=== PATIENT | male | born 1955 | race Caucasian/White ===

== ENCOUNTER 2016-10-09 14:23 | Inpatient (IN) | payer MEDICARE, OTHER ==
--- NOTE | 2016-10-09 16:40 | ED ---
General Adult HPI - General Chief complaint: Shortness of Breath Stated complaint: SOB Time Seen by Provider: 10/09/16 16:08 Source: patient, RN notes reviewed, old records reviewed Mode of arrival: wheelchair Limitations: no limitations - History of Present Illness Initial comments: This is a 7-year-old male ER for evaluation. This patient has a for evaluation of weakness, increased weakness progressive dyspnea and exertional dyspnea and a few syncopal episodes, symptoms grossing over 2 weeks. Patient has history of heart failure and coronary artery disease, patient is on oxygen at home. Patient also admits to swelling of his lower extremities and abdomen. Patient is no known fevers, and no chest pain at this time. - Related Data Home Medications Medication Instructions Recorded Confirmed Albuterol Sulfate [Ventolin HFA] 2 puff INHALATION RT-QID PRN 01/23/16 10/09/16 Aspirin 325 mg PO DAILY 01/23/16 10/09/16 Loratadine [Loratadine] 10 mg PO DAILY 01/23/16 10/09/16 PARoxetine HCL [PARoxetine HCL] 40 mg PO DAILY 01/23/16 10/09/16 Albuterol Nebulized [Ventolin 2.5 mg INHALATION RT-TID PRN 10/09/16 10/09/16 Nebulized] Allopurinol [Zyloprim] 300 mg PO DAILY 10/09/16 10/09/16 Clopidogrel [Plavix] 75 mg PO DAILY 10/09/16 10/09/16 Ergocalciferol (Vitamin D2) 50,000 unit PO Q7D 10/09/16 10/09/16 [Vitamin D2] Fluticasone/Vilanterol [Breo 1 puff INHALATION RT-DAILY 10/09/16 10/09/16 Ellipta 200-25 Mcg INH] Furosemide [Lasix] 40 mg PO DAILY 10/09/16 10/09/16 Ibuprofen [Motrin] 800 mg PO Q8H PRN 10/09/16 10/09/16 Montelukast [Singulair] 10 mg PO HS 10/09/16 10/09/16 OXcarbazepine [Trileptal] 150 mg PO HS 10/09/16 10/09/16 Omeprazole [PriLOSEC] 20 mg PO DAILY 10/09/16 10/09/16 Potassium Chloride ER [K-Dur 10] 10 meq PO DAILY 10/09/16 10/09/16 Simvastatin [Zocor] 40 mg PO HS 10/09/16 10/09/16 traMADol HCL [Ultram] 50 mg PO BID 10/09/16 10/09/16 traZODone HCL 50 mg PO HS 10/09/16 10/09/16 Allergies Allergy/AdvReac Type Severity Reaction Status Date / Time No Known Allergies Allergy Verified 10/09/16 14:38 Review of Systems ROS Statement: Those systems with pertinent positive or pertinent negative responses have been documented in the HPI. ROS Other: All systems not noted in ROS Statement are negative. Past Medical History Past Medical History: Coronary Artery Disease (CAD), Hyperlipidemia, Hypertension, Myocardial Infarction ([place]) Additional Past Medical History / Comment(s): cardiac defib, History of Any Multi-Drug Resistant Organisms: None Reported Past Surgical History: Back Surgery, Coronary Bypass/CABG, Orthopedic Surgery Additional Past Surgical History / Comment(s): cabg FINGER REPAIR REATTACHEMENT Past Psychological History: Anxiety, Depression Smoking Status: Current every day smoker Past Alcohol Use History: None Reported Past Drug Use History: None Reported General Exam Limitations: no limitations General appearance: alert, in no apparent distress Head exam: Present: atraumatic, normocephalic, normal inspection Eye exam: Present: normal appearance, PERRL, EOMI. Absent: scleral icterus, conjunctival injection, periorbital swelling ENT exam: Present: normal exam, mucous membranes moist Neck exam: Present: normal inspection. Absent: tenderness, meningismus, lymphadenopathy Respiratory exam: Present: normal lung sounds bilaterally. Absent: respiratory distress, wheezes, rales, rhonchi, stridor Cardiovascular Exam: Present: regular rate, normal rhythm, normal heart sounds. Absent: systolic murmur, diastolic murmur, rubs, gallop, clicks GI/Abdominal exam: Present: soft, normal bowel sounds. Absent: distended, tenderness, guarding, rebound, rigid Extremities exam: Present: normal inspection, full ROM, normal capillary refill. Absent: tenderness, pedal edema, joint swelling, calf tenderness Back exam: Present: normal inspection Neurological exam: Present: alert, oriented X3, CN II-XII intact Psychiatric exam: Present: normal affect, normal mood Skin exam: Present: warm, dry, intact, normal color. Absent: rash Course Vital Signs 10/09/16 10/09/16 10/09/16 14:34 17:52 17:55 Temperature 97.8 F 97.8 F Pulse Rate 96 91 Respiratory 20 20 Rate Blood Pressure 103/71 96/70 O2 Sat by Pulse 95 99 Oximetry - Reevaluation(s) Reevaluation #1: 10/09/16 19:02 Patient does have mild improvement of breathing but still feeling weak and fatigued Medical Decision Making - Medical Decision Making 61 male here for reevaluation shortness of breath swelling increased leg edema weakness and decreased activity level. Patient does have mildly elevated troponin with dehydration and renal failure and pneumonia. Patient will be admitted for treatment and evaluation of all the above. Continued cardiovascular and hemodynamic monitoring and support. - Lab Data Result diagrams: 10/09/16 16:03 10/09/16 16:03 Lab Results 10/09/16 10/09/16 10/09/16 Range/Units 16:03 16:03 16:03 WBC 14.9 H (3.8-10.6) k/uL RBC 4.34 (4.30-5.90) m/uL Hgb 10.3 L (13.0-17.5) gm/dL Hct 35.2 L (39.0-53.0) % MCV 81.1 (80.0-100.0) fL MCH 23.8 L (25.0-35.0) pg MCHC 29.3 L (31.0-37.0) g/dL RDW 17.9 H (11.5-15.5) % Plt Count 284 (150-450) k/uL Neutrophils % 81 % Lymphocytes % 11 % Monocytes % 6 % Eosinophils % 0 % Basophils % 0 % Neutrophils # 12.0 H (1.3-7.7) k/uL Lymphocytes # 1.6 (1.0-4.8) k/uL Monocytes # 0.9 (0-1.0) k/uL Eosinophils # 0.1 (0-0.7) k/uL Basophils # 0.0 (0-0.2) k/uL Hypochromasia Marked Poikilocytosis Moderate Anisocytosis Slight Microcytosis Slight PT (9.0-12.0) sec INR (<1.1) APTT (22.0-30.0) sec D-Dimer (<0.60) mg/L FEU Sodium 126 L (137-145) mmol/L Potassium 5.4 H (3.5-5.1) mmol/L Chloride 96 L (98-107) mmol/L Carbon Dioxide 18 L (22-30) mmol/L Anion Gap 12 mmol/L BUN 49 H (9-20) mg/dL Creatinine 1.40 H (0.66-1.25) mg/dL Est GFR (MDRD) Af Amer >60 (>60 ml/min/1.73 sqM) Est GFR (MDRD) Non-Af 52 (>60 ml/min/1.73 sqM) Glucose 179 H (74-99) mg/dL Calcium 8.0 L (8.4-10.2) mg/dL Phosphorus 4.2 (2.5-4.5) mg/dL Magnesium 2.0 (1.6-2.3) mg/dL Total Bilirubin 1.7 H (0.2-1.3) mg/dL AST 50 (17-59) U/L ALT 117 H (21-72) U/L Alkaline Phosphatase 144 H (38-126) U/L Total Creatine Kinase 77 (55-170) U/L CK-MB (CK-2) 4.1 H* (0.0-2.4) ng/mL CK-MB (CK-2) Rel Index 5.3 Troponin I 0.046 H* (0.000-0.034) ng/mL NT-Pro-B Natriuret Pep pg/mL Total Protein 6.2 L (6.3-8.2) g/dL Albumin 3.2 L (3.5-5.0) g/dL Urine Color Urine Appearance (Clear) Urine pH (5.0-8.0) Ur Specific [place] (1.001-1.035) Urine Protein (Negative) Urine Glucose (UA) (Negative) Urine Ketones (Negative) Urine Blood (Negative) Urine Nitrate (Negative) Urine Bilirubin (Negative) Urine Urobilinogen (<2.0) mg/dL Ur Leukocyte Esterase (Negative) 10/09/16 10/09/16 10/09/16 Range/Units 16:03 16:03 16:03 WBC (3.8-10.6) k/uL RBC (4.30-5.90) m/uL Hgb (13.0-17.5) gm/dL Hct (39.0-53.0) % MCV (80.0-100.0) fL MCH (25.0-35.0) pg MCHC (31.0-37.0) g/dL RDW (11.5-15.5) % Plt Count (150-450) k/uL Neutrophils % % Lymphocytes % % Monocytes % % Eosinophils % % Basophils % % Neutrophils # (1.3-7.7) k/uL Lymphocytes # (1.0-4.8) k/uL Monocytes # (0-1.0) k/uL Eosinophils # (0-0.7) k/uL Basophils # (0-0.2) k/uL Hypochromasia Poikilocytosis Anisocytosis Microcytosis PT 13.9 H (9.0-12.0) sec INR 1.4 (<1.1) APTT 26.2 (22.0-30.0) sec D-Dimer 2.93 H (<0.60) mg/L FEU Sodium (137-145) mmol/L Potassium (3.5-5.1) mmol/L Chloride (98-107) mmol/L Carbon Dioxide (22-30) mmol/L Anion Gap mmol/L BUN (9-20) mg/dL Creatinine (0.66-1.25) mg/dL Est GFR (MDRD) Af Amer (>60 ml/min/1.73 sqM) Est GFR (MDRD) Non-Af (>60 ml/min/1.73 sqM) Glucose (74-99) mg/dL Calcium (8.4-10.2) mg/dL Phosphorus (2.5-4.5) mg/dL Magnesium (1.6-2.3) mg/dL Total Bilirubin (0.2-1.3) mg/dL AST (17-59) U/L ALT (21-72) U/L Alkaline Phosphatase (38-126) U/L Total Creatine Kinase (55-170) U/L CK-MB (CK-2) (0.0-2.4) ng/mL CK-MB (CK-2) Rel Index Troponin I (0.000-0.034) ng/mL NT-Pro-B Natriuret Pep 39979 pg/mL Total Protein (6.3-8.2) g/dL Albumin (3.5-5.0) g/dL Urine Color Urine Appearance (Clear) Urine pH (5.0-8.0) Ur Specific [place] (1.001-1.035) Urine Protein (Negative) Urine Glucose (UA) (Negative) Urine Ketones (Negative) Urine Blood (Negative) Urine Nitrate (Negative) Urine Bilirubin (Negative) Urine Urobilinogen (<2.0) mg/dL Ur Leukocyte Esterase (Negative) 10/09/16 Range/Units 17:45 WBC (3.8-10.6) k/uL RBC (4.30-5.90) m/uL Hgb (13.0-17.5) gm/dL Hct (39.0-53.0) % MCV (80.0-100.0) fL MCH (25.0-35.0) pg MCHC (31.0-37.0) g/dL RDW (11.5-15.5) % Plt Count (150-450) k/uL Neutrophils % % Lymphocytes % % Monocytes % % Eosinophils % % Basophils % % Neutrophils # (1.3-7.7) k/uL Lymphocytes # (1.0-4.8) k/uL Monocytes # (0-1.0) k/uL Eosinophils # (0-0.7) k/uL Basophils # (0-0.2) k/uL Hypochromasia Poikilocytosis Anisocytosis Microcytosis PT (9.0-12.0) sec INR (<1.1) APTT (22.0-30.0) sec D-Dimer (<0.60) mg/L FEU Sodium (137-145) mmol/L Potassium (3.5-5.1) mmol/L Chloride (98-107) mmol/L Carbon Dioxide (22-30) mmol/L Anion Gap mmol/L BUN (9-20) mg/dL Creatinine (0.66-1.25) mg/dL Est GFR (MDRD) Af Amer (>60 ml/min/1.73 sqM) Est GFR (MDRD) Non-Af (>60 ml/min/1.73 sqM) Glucose (74-99) mg/dL Calcium (8.4-10.2) mg/dL Phosphorus (2.5-4.5) mg/dL Magnesium (1.6-2.3) mg/dL Total Bilirubin (0.2-1.3) mg/dL AST (17-59) U/L ALT (21-72) U/L Alkaline Phosphatase (38-126) U/L Total Creatine Kinase (55-170) U/L CK-MB (CK-2) (0.0-2.4) ng/mL CK-MB (CK-2) Rel Index Troponin I (0.000-0.034) ng/mL NT-Pro-B Natriuret Pep pg/mL Total Protein (6.3-8.2) g/dL Albumin (3.5-5.0) g/dL Urine Color Yellow Urine Appearance Clear (Clear) Urine pH 5.5 (5.0-8.0) Ur Specific [place] 1.015 (1.001-1.035) Urine Protein Trace H (Negative) Urine Glucose (UA) Negative (Negative) Urine Ketones Negative (Negative) Urine Blood Negative (Negative) Urine Nitrate Negative (Negative) Urine Bilirubin Negative (Negative) Urine Urobilinogen 4.0 (<2.0) mg/dL Ur Leukocyte Esterase Negative (Negative) - Radiology Data Radiology results: report reviewed (Chest x-ray positive for pneumonia, CT negative for PE, ultrasound bilateral lower external is negative for DVT), image reviewed Critical Care Time Critical Care Time: Yes Total Critical Care Time: 31 Disposition Clinical Impression: Congestive heart failure, Community acquired pneumonia, Asthma with exacerbation, ARF (acute renal failure), Elevated troponin Disposition: ADMITTED IP TO THIS HOSP Condition: Serious Referrals: Maddie Anne DO [Primary Care Provider] - 1-2 days
[2016-10-09] MEDS ORDERED: SODIUM CHLORIDE 0.9% 1,000 ML IV STA ×2 (16:44)
[2016-10-09 17:00] LABS: Anisocytosis Slight; Basophils % (A) 0 %; CH 23.9; CHCM 29.6; Eosinophils # (A) 0.1 k/uL (0-0.7); Eosinophils % (A) 0 %; HCT 35.2 % (39.0-53.0); HDW 4.13; HGB 10.3 gm/dL (13.0-17.5); Hypochromasia Marked; Luc % (Auto) 2; Lymphocytes # (A) 1.6 k/uL (1.0-4.8); Lymphocytes % (A) 11 %; MCH 23.8 pg (25.0-35.0); MCHC 29.3 g/dL (31.0-37.0); MCV 81.1 fL (80.0-100.0); Microcytosis Slight; Monocytes # (A) 0.9 k/uL (0-1.0); Monocytes % (A) 6 %; Neutrophils % (A) 81 %; Poikilocytosis Moderate; RBC 4.34 m/uL (4.30-5.90); RDW 17.9 % (11.5-15.5); WBC 14.9 k/uL (3.8-10.6); WBC (Perox) 14.36
[2016-10-09 17:16] LABS: ALT 117 U/L (21-72); AST 50 U/L (17-59); Alkaline Phosphatase 144 U/L (38-126); Anion Gap 12 mmol/L; Blood Urea Nitrogen 49 mg/dL (9-20); Carbon Dioxide 18 mmol/L (22-30); Chloride 96 mmol/L (98-107); Glucose 179 mg/dL (74-99); Non-African American GFR(MDRD) 52 (>60 ml/min/1.73 sqM); Phosphorous 4.2 mg/dL (2.5-4.5); Sodium 126 mmol/L (137-145); Total Bilirubin 1.7 mg/dL (0.2-1.3); Total Protein 6.2 g/dL (6.3-8.2)
[2016-10-09 17:17] LABS: INR 1.4 (<1.1); Partial Thromboplastin Time 26.2 sec (22.0-30.0); Potassium 5.4 mmol/L (3.5-5.1); Prothrombin Time 13.9 sec (9.0-12.0)
--- NOTE | 2016-10-09 17:25 | XR ---
EXAMINATION TYPE: XR chest 2V DATE OF EXAM: 10/09/2016 5:09 PM COMPARISON: 10/06/2013 HISTORY: Short of breath and cough TECHNIQUE: Frontal and lateral views of the chest are obtained. FINDINGS: The heart is enlarged. There is no heart failure. There is some density at the posterior l blayne base on the lateral view that is probably in the left lower lobe. There are no hilar masses. Ther e is a left axillary pacemaker with the lead tips in the right ventricle. There are chest leads. Ther e is slight blunting of left costophrenic angle. IMPRESSION: There is evidence of a new left pleural effusion compared to old exam. Heart appears sig nificantly increased in size since last exam that could relate to a pericardial effusion. The posteri or basal left lower lobe pneumonia cannot be excluded.
[2016-10-09] MEDS ORDERED: RX INFO: IV CONTRAST WAS GIVEN 1 EACH MISC MISCELLANE PRN (17:30)
[2016-10-09] MEDS ORDERED: ONDANSETRON 4 MG/2 ML VIAL IVP STA (17:33)
[2016-10-09 17:48] LABS: Creatine Kinase MB 4.1 ng/mL (0.0-2.4); Troponin I 0.046 ng/mL (0.000-0.034)
[2016-10-09 18:13] LABS: Appearance,Urine Clear (Clear); Bilirubin,Urine Negative (Negative); Glucose,Urine (UA) Negative (Negative); Ketones,Urine Negative (Negative); Leukocyte Esterase,Urine Negative (Negative); Nitrite,Urine Negative (Negative); PH, Urine 5.5 (5.0-8.0); Protein,Urine Trace (Negative); Specific Gravity,Urine 1.015 (1.001-1.035); UA Billing (MACRO vs. MICRO) CHEM
[2016-10-09] MEDS ORDERED: LEVOFLOXACIN 750MG-D5W PMX 750 MG in DEXTROSE/WATER 1 150ML.BAG IVPB STA (18:54)
--- NOTE | 2016-10-09 18:57 | CT ---
EXAMINATION TYPE: CT angio chest DATE OF EXAM: 10/09/2016 6:22 PM COMPARISON: 12/01/2009 HISTORY: Pt states of SOB and chest pain x5 days CT DLP: 682 mGycm Automated exposure control for dose reduction was used. CONTRAST: CTA scan of the thorax is performed with IV Contrast, patient injected with 80 mL of Visipaque 320, p ulmonary embolism protocol. . FINDINGS: There are 3-D post processed images. There are multiple enlarged paratracheal lymph nodes and mediast inal lymph nodes that measure up to 2 cm. I see no filling defect in the pulmonary arteries. There is no evidence of aortic aneurysm. Heart is enlarged. There are bilateral pleural effusions and larger on the left side. There is ascites fluid in the abdomen. There is coronary artery calcification. Ther e is no evidence of a pulmonary mass. There are interstitial infiltrates at the lung bases. IMPRESSION: NO EVIDENCE OF PULMONARY EMBOLISM. BILATERAL PLEURAL EFFUSIONS ARE SMALLER THAN OLD CT SCAN. THERE IS MEDIASTINAL ADENOPATHY UNCHANGED COMPARED TO OLD EXAM. ABDOMINAL ASCITES. CARDIOMEGALY. ATHEROSCLERO TIC VASCULAR DISEASE. There is contrast reflux into the inferior vena cava and hepatic veins consiste nt with congestive heart failure.
--- NOTE | 2016-10-09 18:58 | US ---
EXAMINATION TYPE: US venous doppler duplex LE BI DATE OF EXAM: 10/09/2016 6:45 PM COMPARISON: Prior in PACS 2009 CLINICAL HISTORY: Pain. CHF, Swelling SIDE PERFORMED: Bilateral VESSELS IMAGED: External Iliac Vein (EIV) Common Femoral Vein Deep Femoral Vein Greater Saphenous Vein * Femoral Vein Popliteal Vein Small Saphenous Vein * Proximal Calf Veins (* superficial vessels) TECHNOLOGIST IMPRESSION: Right Leg: Negative for DVT Left Leg: Negative for DVT IMPRESSION: Normal exam. No evidence of deep venous thrombosis in the left and right leg.
[2016-10-09] MEDS ORDERED: ASPIRIN 325 MG TAB PO STA (19:04)
[2016-10-09] MEDS ORDERED: PNEUMONIA PROTOCOL UTILIZED 1 EACH MISC PO PRN (19:04)
[2016-10-09] MEDS ORDERED: FUROSEMIDE 10 MG/ML 4 ML VIAL IV STA (19:04)
[2016-10-09] MEDS: SODIUM CHLORIDE 0.9% 1,000 ML IV SCH (19:41)
[2016-10-09] MEDS: IPRATROPIUM-ALBUTEROL 3 ML NEB INHALATION SCH (20:21)
[2016-10-09 23:20] LABS: Anion Gap 13 mmol/L; Blood Urea Nitrogen 50 mg/dL (9-20); Calcium 7.6 mg/dL (8.4-10.2); Carbon Dioxide 18 mmol/L (22-30); Chloride 97 mmol/L (98-107); Glucose 159 mg/dL (74-99); Magnesium 1.8 mg/dL (1.6-2.3); Non-African American GFR(MDRD) 52 (>60 ml/min/1.73 sqM); Potassium 4.8 mmol/L (3.5-5.1); Sodium 128 mmol/L (137-145)
--- NOTE | 2016-10-10 07:48 | XR ---
EXAMINATION TYPE: XR chest 2V DATE OF EXAM: 10/10/2016 7:02 AM COMPARISON: CT chest 10/09/2016, chest x-ray 10/09/2016. INDICATION: Pneumonia TECHNIQUE: Single frontal view of the chest is obtained. FINDINGS: The heart size is normal. The pulmonary vasculature is normal. There is a lingular infiltrate. Correlate for atelectasis or pneumonia. Small left pleural effusion i s present. Electronic device overlies left chest. Sternotomy wires are present. IMPRESSION: 1. Lingular infiltrate. Correlate for atelectasis or pneumonia. 2. Small left pleural effusion
[2016-10-10] MEDS: ASPIRIN 325 MG TAB PO SCH (08:16)
[2016-10-10] MEDS: IPRATROPIUM-ALBUTEROL 3 ML NEB INHALATION SCH ×4 (09:10→21:01)
[2016-10-10 09:44] LABS: Anisocytosis Slight; Basophils % (A) 0 %; CH 23.6; CHCM 28.1; Eosinophils # (A) 0.1 k/uL (0-0.7); Eosinophils % (A) 1 %; HCT 35.8 % (39.0-53.0); HGB 10.3 gm/dL (13.0-17.5); Hypochromasia Marked; Luc % (Auto) 1; Lymphocytes % (A) 7 %; MCH 24.2 pg (25.0-35.0); MCHC 28.8 g/dL (31.0-37.0); MCV 84.3 fL (80.0-100.0); Mean Platelet Volume 6.9; Monocytes # (A) 0.5 k/uL (0-1.0); Monocytes % (A) 4 %; Neutrophils # (A) 12.2 k/uL (1.3-7.7); Neutrophils % (A) 87 %; Poikilocytosis Slight; RBC 4.25 m/uL (4.30-5.90); RDW 17.8 % (11.5-15.5); WBC 13.9 k/uL (3.8-10.6); WBC (Perox) 13.15
[2016-10-10 09:46] LABS: ALT 102 U/L (21-72); AST 55 U/L (17-59); Alkaline Phosphatase 119 U/L (38-126); Anion Gap 13 mmol/L; Blood Urea Nitrogen 49 mg/dL (9-20); Calcium 7.9 mg/dL (8.4-10.2); Carbon Dioxide 17 mmol/L (22-30); Chloride 98 mmol/L (98-107); Glucose 242 mg/dL (74-99); Non-African American GFR(MDRD) 54 (>60 ml/min/1.73 sqM); Sodium 128 mmol/L (137-145); Total Bilirubin 1.6 mg/dL (0.2-1.3); Total Protein 6.1 g/dL (6.3-8.2)
[2016-10-10 10:06] LABS: Manual Review Performed; Polychromasia Present
[2016-10-10] MEDS: ERGOCALCIFEROL 50,000 UNIT CAP PO SCH (10:23)
[2016-10-10] MEDS: HEPARIN SODIUM,PORCINE 5,000 UNIT/ML 1 ML VIAL SQ SCH ×2 (10:23→22:24)
[2016-10-10] MEDS: CLOPIDOGREL 75 MG TAB PO SCH (10:23)
[2016-10-10] MEDS: LORATADINE 10 MG TAB PO SCH (10:23)
[2016-10-10] MEDS: PARoxetine 20 MG TAB PO SCH (10:24)
[2016-10-10] MEDS: PANTOPRAZOLE 40 MG TABLET PO SCH (10:24)
[2016-10-10] MEDS: POTASSIUM CHLORIDE ER 10 MEQ TAB.ER.PRT PO SCH (10:24)
--- NOTE | 2016-10-10 10:33 | ECHOF ---
Referral Reason:pericardialEffusion MEASUREMENTS -------- HEIGHT: 165.1 cm WEIGHT: 101.2 kg BP: 112/60 RVIDd: 4.2 cm (< 3.3) IVSd: 1.2 cm (0.6 - 1.1) LVIDd: 6.7 cm (3.9 - 5.3) LVPWd: 1.3 cm (0.6 - 1.1) IVSs: 1.7 cm LVIDs: 5.7 cm LVPWs: 1.6 cm LA Diam: 4.7 cm (2.7 - 3.8) LAESV Index (A-L): 34.56 ml/m Ao Diam: 3.6 cm (2.0 - 3.7) AV Cusp: 1.9 cm (1.5 - 2.6) MV EXCURSION: 15.228 mm (> 18.000) MV EF SLOPE: 97 mm/s (70 - 150) EPSS: 2.4 cm AV maxP.12 mmHg AV meanP.02 mmHg RAP: 5.00 mmHg RVSP: 40.65 mmHg FINDINGS -------- This was a technically adequate study. The left ventricle is moderately dilated. There is mild concentric left ventricular hypertrophy. Overall left ventricular systolic function is severely impaired with, an EF between 20 - 25 %. The right ventricle is severely enlarged. LA is moderately dilated 34-39 ml/m2 The right atrium is normal in size. 1.5mg of Definity was utilized for enhancement of images Aortic valve is trileaflet and is moderately thickened. The mitral valve leaflets are mildly thickened. Mild mitral annular calcification present. Moderate mitral regurgitation is present. Mild tricuspid regurgitation present. There is mild pulmonary hypertension. The right ventricular systolic pressure, as measured by Doppler, is 40.65mmHg. The pulmonic valve is normal. There is no pulmonic regurgitation present. The aortic root size is normal. The inferior vena cava is mildly dilated. There is no pericardial effusion. CONCLUSIONS -------- 1. This was a technically adequate study. 2. The mitral valve leaflets are mildly thickened. 3. Mild mitral annular calcification present. 4. Moderate mitral regurgitation is present. 5. Mild tricuspid regurgitation present. 6. There is mild pulmonary hypertension. 7. The right ventricular systolic pressure, as measured by Doppler, is 40.65mmHg. 8. The aortic root size is normal. 9. The inferior vena cava is mildly dilated. 10. There is no pericardial effusion. 11. The left ventricle is moderately dilated. 12. There is mild concentric left ventricular hypertrophy. 13. Overall left ventricular systolic function is severely impaired with, an EF between 20 - 25 %. 14. The right ventricle is severely enlarged. 15. LA is moderately dilated 34-39 ml/m2 16. The right atrium is normal in size. 17. 1.5mg of Definity was utilized for enhancement of images 18. Aortic valve is trileaflet and is moderately thickened. INFUSION THERAPY NURSE: Analia Dumont RDCS
[2016-10-10] MEDS: traMADol 50 MG TAB PO SCH ×2 (11:04→22:24)
--- NOTE | 2016-10-10 11:05 | P.HPIM ---
History of Present Illness H&P Date: 10/10/16 Chief Complaint: Swelling of the legs and abdomen This is a 61-year-old male, patient of [facility]. He has a known past medical history of congestive heart failure, COPD, coronary artery disease , hyperlipidemia, hypertension, myocardial infarction with previous coronary artery bypass grafting. Also history of anxiety and nicotine dependence. Patient presents to the emergency room with complaints of lower extremity edema and swelling in the abdomen. All symptoms had started over the last few days. He also reports having syncopal episodes over the last couple a days as well. He reports that just getting out of bed he went to stand and passed out for less than a minute. He had no loss of bowel or bladder control. No biting of the tongue. When he regained consciousness he was awake and alert and recognized his . Patient does have a history of congestive heart failure in which she does take Lasix 40 mg daily. Patient reports that he has been taking this medication accurately. Patient's been having shortness of breath and feeling weak all over. Patient denies any fever, chills, sweats. Denies any nausea or vomiting. Denies any chest pain. Denies any bowel movement changes or urinary symptoms. Patient has been admitted to telemetry floor for congestive heart failure and acute kidney injury. Cardiology has been consulted. Patient had computed tomography scan of the chest that showed no evidence of pulmonary embolism. Bilateral pleural effusions are smaller than on old CAT scan. There is mediastinal adenopathy unchanged. Old exam. Abdominal ascites. Cardiomegaly. Atherosclerotic vascular disease. There is reflex in the inferior vena cava and hepatic veins consistent with congestive heart failure. On chest x-ray from today it is showing a lingular infiltrate with small left pleural effusion. Patient did receive a dose of IV Lasix in the emergency room and was started on Levaquin. Review of Systems Please refer to HPI otherwise unremarkable Past Medical History Past Medical History: Coronary Artery Disease (CAD), Heart Failure, Hyperlipidemia, Hypertension, Myocardial Infarction (PA), Osteoarthritis (OA) Additional Past Medical History / Comment(s): cardiac defib, patient did have episode of acute kidney injury in the past he did not require dialysis. Last Myocardial Infarction Date:: 2008 History of Any Multi-Drug Resistant Organisms: None Reported Past Surgical History: Back Surgery, Coronary Bypass/CABG, Orthopedic Surgery Additional Past Surgical History / Comment(s): CABG 2009, FINGER REPAIR REATTACHEMENT Past Anesthesia/Blood Transfusion Reactions: No Reported Reaction Past Psychological History: Anxiety, Depression Smoking Status: Current every day smoker Past Alcohol Use History: None Reported Past Drug Use History: None Reported - Past Family History Father Family Medical History: No Reported History Mother Family Medical History: Coronary Artery Disease (CAD), Diabetes Mellitus Medications and Allergies Home Medications Medication Instructions Recorded Confirmed Type Albuterol Sulfate [Ventolin HFA] 2 puff INHALATION RT-QID PRN 01/23/16 10/09/16 History Aspirin 325 mg PO DAILY 01/23/16 10/09/16 History Loratadine [Loratadine] 10 mg PO DAILY 01/23/16 10/09/16 History PARoxetine HCL [PARoxetine HCL] 40 mg PO DAILY 01/23/16 10/09/16 History Albuterol Nebulized [Ventolin 2.5 mg INHALATION RT-TID PRN 10/09/16 10/09/16 History Nebulized] Allopurinol [Zyloprim] 300 mg PO DAILY 10/09/16 10/09/16 History Clopidogrel [Plavix] 75 mg PO DAILY 10/09/16 10/09/16 History Ergocalciferol (Vitamin D2) 50,000 unit PO Q7D 10/09/16 10/09/16 History [Vitamin D2] Fluticasone/Vilanterol [Breo 1 puff INHALATION RT-DAILY 10/09/16 10/09/16 History Ellipta 200-25 Mcg INH] Furosemide [Lasix] 40 mg PO DAILY 10/09/16 10/09/16 History Ibuprofen [Motrin] 800 mg PO Q8H PRN 10/09/16 10/09/16 History Montelukast [Singulair] 10 mg PO HS 10/09/16 10/09/16 History OXcarbazepine [Trileptal] 150 mg PO HS 10/09/16 10/09/16 History Omeprazole [PriLOSEC] 20 mg PO DAILY 10/09/16 10/09/16 History Potassium Chloride ER [K-Dur 10] 10 meq PO DAILY 10/09/16 10/09/16 History Simvastatin [Zocor] 40 mg PO HS 10/09/16 10/09/16 History traMADol HCL [Ultram] 50 mg PO BID 10/09/16 10/09/16 History traZODone HCL 50 mg PO HS 10/09/16 10/09/16 History Allergies Allergy/AdvReac Type Severity Reaction Status Date / Time No Known Allergies Allergy Verified 10/09/16 14:38 Physical Exam Vitals: Vital Signs Temp Pulse Pulse Resp BP BP Pulse Ox 10/10/16 08:15 96.8 F L 97 24 114/67 100 10/10/16 04:00 92 20 112/60 99 10/10/16 00:00 93 20 117/78 99 10/09/16 20:50 96.3 F L 43 L 22 158/71 96 10/09/16 20:34 96.7 F L 97 18 97/53 100 10/09/16 20:33 97 10/09/16 20:23 99 10/09/16 20:14 96.6 F L 96 24 122/67 99 10/09/16 19:41 100 22 115/67 100 10/09/16 19:19 97.9 F 79 22 144/78 100 Intake and Output 10/09/16 10/10/16 10/10/16 22:59 06:59 14:59 Intake Total 480 534 Output Total 850 300 Balance -370 234 Intake: Oral 480 534 Output: Urine 850 300 Other: Voiding Method Toilet Toilet Toilet Urinal Urinal Urinal Weight 96.9 kg 101.2 kg Head normocephalic Neck supple Lungs clear to auscultation bilaterally no wheezing or crackles Heart regular rate and rhythm S1-S2, no rub or gallop Abdomen is soft nontender distended positive bowel sounds no hepatosplenomegaly Extremities 2+ pitting edema feet up to the knee bilaterally. Neuro alert and orientated to 3 Results CBC & Chem 7: 10/10/16 09:15 10/10/16 09:15 Labs: Abnormal Lab Results - Last 24 Hours (Table) 10/09/16 10/10/16 10/10/16 Range/Units 22:43 09:15 09:15 WBC 13.9 H (3.8-10.6) k/uL RBC 4.25 L (4.30-5.90) m/uL Hgb 10.3 L (13.0-17.5) gm/dL Hct 35.8 L (39.0-53.0) % MCH 24.2 L (25.0-35.0) pg MCHC 28.8 L (31.0-37.0) g/dL RDW 17.8 H (11.5-15.5) % Neutrophils # 12.2 H (1.3-7.7) k/uL Sodium 128 L 128 L (137-145) mmol/L Chloride 97 L (98-107) mmol/L Carbon Dioxide 18 L 17 L (22-30) mmol/L BUN 50 H 49 H (9-20) mg/dL Creatinine 1.40 H 1.34 H (0.66-1.25) mg/dL Glucose 159 H 242 H (74-99) mg/dL Calcium 7.6 L 7.9 L (8.4-10.2) mg/dL Total Bilirubin 1.6 H (0.2-1.3) mg/dL ALT 102 H (21-72) U/L Total Protein 6.1 L (6.3-8.2) g/dL Albumin 3.0 L (3.5-5.0) g/dL Thrombosis Risk Factor Assmnt - Choose All That Apply Any of the Below Risk Factors Present?: Yes Each Factor Represents 1 point: Age 41-60 years, Obesity (BMI >25) Thrombosis Risk Factor Assessment Total Risk Factor Score: 2 Thrombosis Risk Factor Assessment Level: Low Risk Assessment and Plan Plan: 1. Acute congestive heart failure exacerbation: Check echo. Patient did receive IV Lasix 1. Cardiology was consulted. BNP elevated 13,200. 2. Syncopal episode: Exact etiology unclear. Continue to monitor monitoring. Check echo. Check for orthostatic hypotension. Monitor for cardiac arrhythmias. Also need to rule out it's related to dehydration with his acute kidney injury 3. Acute kidney injury: Creatinine 1.40 on admission. Monitor closely. 4. Hyponatremia: Sodium 126 on admission now 128. Continue to monitor. Repeat labs in a.m. Possibly related to diuretics. He was on Lasix at home. 5. Hyperkalemia on admission possibly related to acute kidney injury and potassium supplement. Now corrected. Continue to monitor. 6. Possible pneumonia: Chest x-ray showing a lingular infiltrate. Patient started on Levaquin. 7. Mildly elevated LFTs with ALT of 117, AST 50, alk phos 144, total bili of 1.7. Hold patient's Zocor. Also could be related to congestive heart failure contributing to fluid congestion in the liver. We'll monitor. Repeat labs in a.m. 8. Elevated d-dimer on admission computed tomography scan of the chest is negative for PE Dopplers were negative for DVT 9. History of hyperlipidemia: Zocor on hold due to elevated LFTs 10. History of myocardial infarction and coronary artery disease with previous CABG 11. Essential hypertension: Blood pressures are stable. 12. COPD with no evidence of exacerbation. 13. Nicotine dependence: Patient is working on smoking cessation. He is down to smoking 1 cigarette a day 14. Episodes of bradycardia: We will patient evaluated by cardiology. Heart rate has been as low as 43 and is currently 97. GI prophylaxis Protonix and DVT prophylaxis subcu heparin Time with Patient: Greater than 30 (Greater than 50% of the total time spent in counseling and coordination of care.I performed an examination of the patient and discussed their management with the physician Child Life Therapist. I have reviewed the Physician Child Life Therapist's notes and agree with the documented findings and plan of care)
[2016-10-10 11:39] LABS: Glucose,Whole Blood 270 mg/dL (75-99)
[2016-10-10] MEDS: INSULIN LISPRO (humaLOG) 300 UNIT/3 ML VIAL SQ SCH ×3 (13:21→22:25)
[2016-10-10 13:39] LABS: % Iron Saturation 9.4 % (20-50)
[2016-10-10 14:16] LABS: Hemoglobin A1C 7.7 % (4.2-6.1)
[2016-10-10] MEDS ORDERED: FUROSEMIDE 10 MG/ML 2 ML VIAL IV ONE (14:39)
[2016-10-10 15:52] LABS: Hepatitis B Surface Ag Index 0.07
[2016-10-10 15:58] LABS: Hepatitis B Core IgM Index 0.04
[2016-10-10 16:10] LABS: Hepatitis C Virus IgG Ab Negative (Negative); Hepatitis C Virus IgG Index 0.01
[2016-10-10] MEDS: SYMBICORT 160-4.5 MCG INHALER INHALATION SCH ×2 (16:32→21:01)
[2016-10-10 16:40] LABS: Glucose,Whole Blood 206 mg/dL (75-99)
[2016-10-10] MEDS: LEVOFLOXACIN 750MG-D5W PMX 750 MG in DEXTROSE/WATER 1 150ML.BAG IVPB SCH (16:43)
[2016-10-10] MEDS: SODIUM CHLORIDE 0.9% 1,000 ML IV SCH (19:19)
[2016-10-10 21:07] LABS: Glucose,Whole Blood 159 mg/dL (75-99)
--- NOTE | 2016-10-10 22:12 | US ---
EXAMINATION TYPE: US carotid duplex BILAT DATE OF EXAM: 10/10/2016 7:26 PM COMPARISON: NONE CLINICAL HISTORY: syncope. Difficult study due to small vessels and patient's heavy breathing. Patien t fell asleep during exam multiple times/could not stay awake EXAM MEASUREMENTS: RIGHT: Peak Systolic Velocity (PSV) cm/sec ----- Right CCA: 51.4 ----- Right ICA: 123.9 ----- Right ECA: 106.6 ICA/CCA ratio: 2.4 RIGHT: End Diastole cm/sec ----- Right CCA: 14.7 ----- Right ICA: 33.3 ----- Right ECA: 6.7 LEFT: Peak Systolic Velocity (PSV) cm/sec ----- Left CCA: 68.0 ----- Left ICA: 72.3 ----- Left ECA: 47.9 ICA/CCA ratio: 1.1 LEFT: End Diastole cm/sec ----- Left CCA: 27.4 ----- Left ICA: 32.2 ----- Left ECA: 14.7 VERTEBRALS (direction of flow): Right Vertebral: Antegrade Left Vertebral: Antegrade IMPRESSION: 1. ARRYTHMIA NOTED THROUGHOUT EXAM. 2. MODERATE AMOUNT OF PLAQUE VISUALIZED IN BILATERAL BULBS. 3. RIGHT ICA/CCA RATIO IS >2, SUGGESTING 50-69% STENOSIS.
[2016-10-10] MEDS: OXcarbazepine 150 MG TAB PO SCH (22:24)
[2016-10-10] MEDS: traZODone HCL 50 MG TAB PO SCH (22:24)
[2016-10-10] MEDS: MONTELUKAST 10 MG TAB PO SCH (22:24)
[2016-10-11] MEDS: INSULIN LISPRO (humaLOG) 300 UNIT/3 ML VIAL SQ SCH ×5 (06:27→22:02)
[2016-10-11] MEDS: PANTOPRAZOLE 40 MG TABLET PO SCH (06:28)
[2016-10-11 06:33] LABS: Glucose,Whole Blood 166 mg/dL (75-99)
[2016-10-11 06:45] LABS: Anisocytosis Slight; Basophils % (A) 0 %; CH 23.7; CHCM 28.8; Eosinophils # (A) 0.1 k/uL (0-0.7); Eosinophils % (A) 1 %; HCT 33.2 % (39.0-53.0); HDW 4.04; HGB 9.6 gm/dL (13.0-17.5); Hypochromasia Marked; Luc # (Auto) 0.15; Luc % (Auto) 1; Lymphocytes # (A) 0.9 k/uL (1.0-4.8); Lymphocytes % (A) 8 %; MCH 23.9 pg (25.0-35.0); MCV 82.5 fL (80.0-100.0); Mean Platelet Volume 6.7; Monocytes # (A) 0.5 k/uL (0-1.0); Monocytes % (A) 5 %; Neutrophils # (A) 9.3 k/uL (1.3-7.7); Neutrophils % (A) 85 %; Poikilocytosis Moderate; RBC 4.03 m/uL (4.30-5.90); RDW 17.7 % (11.5-15.5); WBC (Perox) 11.61
[2016-10-11 06:59] LABS: ALT 93 U/L (21-72); AST 31 U/L (17-59); Alkaline Phosphatase 122 U/L (38-126); Anion Gap 11 mmol/L; Blood Urea Nitrogen 37 mg/dL (9-20); Calcium 8.2 mg/dL (8.4-10.2); Carbon Dioxide 20 mmol/L (22-30); Chloride 101 mmol/L (98-107); Glucose 134 mg/dL (74-99); Non-African American GFR(MDRD) >60 (>60 ml/min/1.73 sqM); Potassium 4.4 mmol/L (3.5-5.1); Sodium 132 mmol/L (137-145); Total Bilirubin 1.7 mg/dL (0.2-1.3); Total Protein 5.8 g/dL (6.3-8.2)
--- NOTE | 2016-10-11 08:38 | US ---
EXAMINATION TYPE: US abdomen complete DATE OF EXAM: 10/11/2016 7:55 AM COMPARISON: CT abdomen February 12, 2011. CTA chest October 09, 2016 CLINICAL HISTORY: elevated LFTs. EXAM MEASUREMENTS: Liver Length: 11.1 cm Gallbladder Wall: 0.7 cm CBD: 0.4 cm Spleen: 14.7 cm Right Kidney: 10.0 x 5.0 x 4.6 cm Left Kidney: 11.6 x 5.7 x 4.8 cm TECHNOLOGIST IMPRESSION: Technically difficult study, large abdomen with pitting edema, difficult to achieve pictures without motion, Pancreas: Obscured by bowel gas Liver: heterogeneous, right lobe appears atrophied Gallbladder: large stone within, thickened wall Evidence for sonographic Luis's sign: no CBD: limited visualization, portion visualized appears wnl Spleen: splenomegaly Right Kidney: inferior pole obscured by bowel gas Left Kidney: no mass or hydro identified Upper IVC: wnl Abd Aorta: unable to visualize due to large abdomen and pitting edema mild ascites The aorta and pancreas are suboptimally evaluated due to overlying bowel gas and patient's body habit us. Liver is heterogeneous in appearance without intrahepatic ductal dilatation. Evaluation for focal mas ses is limited due to the heterogeneity. Some ascites along right aspect of liver is redemonstrated o n images saved. Shadowing calculus is seen in gallbladder. Gallbladder wall is thickened up to 7 mm. Sonographic Luis's sign is negative. Spleen is enlarged in size without focal intrasplenic mass pre sent. Some surrounding ascites is seen superiorly and laterally. Superior portion of spleen is obscur ed by overlying rib . IMPRESSION: Suboptimal study, heterogeneous liver with splenomegaly and perihepatic and perisplenic a scites is noted raising concern for underlying hepatocellular disease. Clinical and liver lab correla tion advised.
[2016-10-11] MEDS: CLOPIDOGREL 75 MG TAB PO SCH (08:59)
[2016-10-11] MEDS: ASPIRIN 325 MG TAB PO SCH (08:59)
[2016-10-11] MEDS: traMADol 50 MG TAB PO SCH ×3 (09:00→22:03)
[2016-10-11] MEDS: LORATADINE 10 MG TAB PO SCH (09:00)
[2016-10-11] MEDS: POTASSIUM CHLORIDE ER 10 MEQ TAB.ER.PRT PO SCH (09:00)
[2016-10-11] MEDS: PARoxetine 20 MG TAB PO SCH (09:00)
[2016-10-11] MEDS: HEPARIN SODIUM,PORCINE 5,000 UNIT/ML 1 ML VIAL SQ SCH ×2 (09:01→22:02)
[2016-10-11] MEDS: FERROUS SULFATE 325 MG TAB PO SCH ×2 (09:04→22:02)
[2016-10-11] MEDS: IPRATROPIUM-ALBUTEROL 3 ML NEB INHALATION SCH ×4 (09:38→19:12)
[2016-10-11] MEDS: SYMBICORT 160-4.5 MCG INHALER INHALATION SCH ×2 (09:39→19:12)
[2016-10-11] MEDS ORDERED: Magnesium Replacement Protocol 1 EACH MISC MISCELLANE PRN (10:50)
[2016-10-11] MEDS ORDERED: Potassium Replacement Protocol 1 EACH MISC MISCELLANE PRN (10:50)
[2016-10-11] MEDS: FUROSEMIDE 250 MG in SODIUM CHLORIDE 0.9% 225 ML IVP SCH (11:44)
[2016-10-11] MEDS: LISINOPRIL 5 MG TAB PO SCH (11:44)
[2016-10-11 11:46] LABS: Glucose,Whole Blood 285 mg/dL (75-99)
--- NOTE | 2016-10-11 12:07 | CONS ---
DATE OF CONSULTATION: CHIEF COMPLAINT: Shortness of breath. Pardeep is a 61-year-old gentleman with history of chronic systolic heart failure, coronary artery disease, status post CABG, ischemic cardiomyopathy with severe LV dysfunction, status post AICD who presented to hospital with progressively worsening leg edema, weight gain and shortness of breath. It is moderate to severe in intensity. He comes in with acute exacerbation of chronic systolic heart failure. Patient has been here since the and I am being consulted today. He denies chest pain, actually does not seem all that symptomatic at rest other than the leg edema. Primary care physician wishes to start IV Lasix. I think it is a good idea, will go ahead and do it. Past medical history is significant for coronary artery disease, status post CABG, ischemic cardiomyopathy, chronic congestive heart failure, status post AICD. An echocardiogram on this admission revealed severe LV dysfunction. Current medications include Ultram, Zocor 40 q. daily, K-Dur, paroxetine, Prilosec, Trileptal, Singulair, loratadine, Motrin, Lasix 40 q. daily, Breo, vitamin D2, Plavix, aspirin, Zyloprim, Ventolin. ALLERGIES: There are no known drug allergies. Family history is negative for premature coronary artery disease. Social history is negative for current smoking, EtOH abuse, or drug abuse. REVIEW OF SYSTEMS: HEENT: Unremarkable. CARDIAC: As described above. RESPIRATORY: As described above. GI: Negative. GENITOURINARY: Negative. ALLERGY/IMMUNOLOGY: Negative. MUSCULOSKELETAL: Significant for arthritis. PSYCHOSOCIAL: Negative. ENDOCRINE: Negative. DERMATOLOGY: Negative. CONSTITUTIONAL: Negative. HEMATOLOGICAL: Negative. ONCOLOGICAL: Negative. The rest of the system review is not relevant. On exam, comfortable at rest. Vital signs are stable. Chest exam reveals good air entry bilaterally. Heart exam reveals first and second heart sounds. Systolic murmur at the apex. Abdomen is soft. Exam of extremities reveals bilateral 3+ pitting edema. Labs show that hemoglobin is 9.6. Potassium is 4.4. Creatinine is 1.2. Patient had a CT scan of the chest done this admission that was negative for pulmonary embolism. ASSESSMENT: 1. Acute exacerbation of chronic systolic heart failure. 2. Ischemic cardiomyopathy with severe left ventricular dysfunction. 3. Status post AICD. PLAN: We will continue with the Lasix drip. Continue the current medications.
--- NOTE | 2016-10-11 12:34 | P.PN ---
Subjective Patient presented with shortness of breath bilateral lower extremity edema with swelling into the abdomen. Did receive IV Lasix. Kidney factors have shown some improvement patient is still having significant edema. And his been started on Lasix drip today. Has noted some improvement in his shortness of breath. Denies any chest pain. Denies any nausea or vomiting. Denies any bowel movement changes or urinary symptoms. Objective - Vital Signs Vital signs: Vital Signs Temp 97.0 F L 10/11/16 08:55 Pulse 88 10/11/16 09:52 Resp 20 10/11/16 09:39 BP 118/71 10/11/16 08:55 Pulse Ox 96 10/11/16 08:55 Intake & Output 10/10/16 10/11/16 10/11/16 18:59 06:59 18:59 Intake Total 734 750 180 Output Total 650 Balance 84 750 180 Weight 101.2 kg 99.7 kg Intake: Intake, IV Titration 150 Amount Sodium Chloride 0.9% 1, 150 000 ml @ 20 mls/hr IV . Q24H [facility] Rx#:[id number] Oral 734 600 180 Output: Urine 650 Other: Voiding Method Toilet Toilet Toilet Urinal Urinal Urinal - Exam Head normocephalic Neck supple Lungs clear to auscultation bilaterally no wheezing or crackles Heart regular rate and rhythm S1-S2, no rub or gallop Abdomen is soft nontender abdominal distention positive bowel sounds no hepatosplenomegaly Extremities 2+ pitting lower extremity edema bilaterally up to the knees. Severe abdominal swelling. Neuro alert and orientated to 3 - Labs CBC & Chem 7: 10/11/16 06:05 10/11/16 05:58 Labs: Abnormal Lab Results - Last 24 Hours (Table) 10/10/16 10/10/16 10/10/16 Range/Units 09:15 09:15 16:39 WBC (3.8-10.6) k/uL RBC (4.30-5.90) m/uL Hgb (13.0-17.5) gm/dL Hct (39.0-53.0) % MCH (25.0-35.0) pg MCHC (31.0-37.0) g/dL RDW (11.5-15.5) % Neutrophils # (1.3-7.7) k/uL Lymphocytes # (1.0-4.8) k/uL Sodium (137-145) mmol/L Carbon Dioxide (22-30) mmol/L BUN (9-20) mg/dL Glucose (74-99) mg/dL POC Glucose (mg/dL) 206 H (75-99) mg/dL Hemoglobin A1c 7.7 H (4.2-6.1) % Calcium (8.4-10.2) mg/dL Iron 37 L (49-181) ug/dL % Saturation 9.4 L (20-50) % Total Bilirubin (0.2-1.3) mg/dL ALT (21-72) U/L Total Protein (6.3-8.2) g/dL Albumin (3.5-5.0) g/dL 10/10/16 10/11/16 10/11/16 Range/Units 21:05 05:58 06:05 WBC 11.0 H (3.8-10.6) k/uL RBC 4.03 L (4.30-5.90) m/uL Hgb 9.6 L (13.0-17.5) gm/dL Hct 33.2 L (39.0-53.0) % MCH 23.9 L (25.0-35.0) pg MCHC 29.0 L (31.0-37.0) g/dL RDW 17.7 H (11.5-15.5) % Neutrophils # 9.3 H (1.3-7.7) k/uL Lymphocytes # 0.9 L (1.0-4.8) k/uL Sodium 132 L (137-145) mmol/L Carbon Dioxide 20 L (22-30) mmol/L BUN 37 H (9-20) mg/dL Glucose 134 H (74-99) mg/dL POC Glucose (mg/dL) 159 H (75-99) mg/dL Hemoglobin A1c (4.2-6.1) % Calcium 8.2 L (8.4-10.2) mg/dL Iron (49-181) ug/dL % Saturation (20-50) % Total Bilirubin 1.7 H (0.2-1.3) mg/dL ALT 93 H (21-72) U/L Total Protein 5.8 L (6.3-8.2) g/dL Albumin 2.9 L (3.5-5.0) g/dL 10/11/16 10/11/16 Range/Units 06:06 11:40 WBC (3.8-10.6) k/uL RBC (4.30-5.90) m/uL Hgb (13.0-17.5) gm/dL Hct (39.0-53.0) % MCH (25.0-35.0) pg MCHC (31.0-37.0) g/dL RDW (11.5-15.5) % Neutrophils # (1.3-7.7) k/uL Lymphocytes # (1.0-4.8) k/uL Sodium (137-145) mmol/L Carbon Dioxide (22-30) mmol/L BUN (9-20) mg/dL Glucose (74-99) mg/dL POC Glucose (mg/dL) 166 H 285 H (75-99) mg/dL Hemoglobin A1c (4.2-6.1) % Calcium (8.4-10.2) mg/dL Iron (49-181) ug/dL % Saturation (20-50) % Total Bilirubin (0.2-1.3) mg/dL ALT (21-72) U/L Total Protein (6.3-8.2) g/dL Albumin (3.5-5.0) g/dL Assessment and Plan Plan: 1. Acute systolic congestive heart failure exacerbation: Echo shows an EF of 20 -25%, moderate mitral regurgitation. Mild pulmonary hypertension. Cardiology was consulted. BNP elevated 13,200 on admission. Patient was started on IV Lasix drip today 2. Syncopal episode: Exact etiology unclear. Continue to monitor monitoring. Check for orthostatic hypotension. Monitor for cardiac arrhythmias. Also need to rule out it's related to dehydration with his acute kidney injury. Echo shows an EF of 20 to 25%. No aortic stenosis 3. Acute kidney injury: Creatinine 1.40 on admission. Creatinine is showing improvement. Continue to monitor 4. Hyponatremia: Sodium 126 on admission. Continue to monitor. Repeat labs in a.m. Sodium level is 132 today 5. Hyperkalemia on admission possibly related to acute kidney injury and potassium supplement. Now corrected. Continue to monitor. 6. Possible pneumonia: Chest x-ray showing a lingular infiltrate. Patient started on Levaquin. 7. Mildly elevated LFTs with ALT of 117, AST 50, alk phos 144, total bili of 1.7. Hold patient's Zocor. Also could be related to congestive heart failure contributing to fluid congestion in the liver. We'll monitor. Repeat labs in a.m. Liver numbers showing some improvement 8. Elevated d-dimer on admission computed tomography scan of the chest is negative for PE Dopplers were negative for DVT 9. History of hyperlipidemia: Zocor on hold due to elevated LFTs 10. History of myocardial infarction and coronary artery disease with previous CABG 11. Essential hypertension: Blood pressures are stable. 12. COPD with no evidence of exacerbation. 13. Nicotine dependence: Patient is working on smoking cessation. He is down to smoking 1 cigarette a day 14. Episodes of bradycardia: We will patient evaluated by cardiology. Heart rate has been as low as 43 and is currently 97. 15. Cardiorenal syndrome 16. Diabetes mellitus type 2 new diagnosis for this admission. Hemoglobin A1c 7.7. Continue with insulin sliding scale while during hospital station. Patient will require oral hypoglycemic agent at discharge. Consult calculation reviewer. Change diet to a consistent carbohydrate diet 17. Iron deficiency anemia. Start patient on ferrous sulfate 3 and 25 mg twice a day. Hemoglobin 9.6. Iron level 37 18. Mediastinal adenopathy noted on CAT scan. 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 Pulmonary service consulted. GI prophylaxis Protonix and DVT prophylaxis subcu heparin
--- NOTE | 2016-10-11 15:06 | P.CNPUL ---
History of Present Illness Consult date: 10/11/16 Reason for consult: dyspnea, hypoxemia, abnormal CXR/CT, other Chief complaint: Shortness of breath, heart failure History of present illness: This is a 61-year-old male was admitted with a diagnosis of shortness of breath. He also had weakness. He had exertional dyspnea. He also apparently had a few episodes where there is near syncope. This is been going on for some time. He apparently came into the emergency room where he was evaluated for possible CHF. He's had lower summary edema as well as increasing abdominal girth as well. No fever no chills. No cough. No phlegm production. No nausea vomiting or diarrhea. The patient has history of CAD hyperlipidemia hypertension myocardial infarction previous bypass grafting some orthopedic procedures as well as apparently COPD as he is on breathing medications. Review of Systems Currently, 12 point review of system is unremarkable. When he came in his primary complaint was shortness of breath and weakness. He also complained of possibly a syncopal or near syncopal episode. Currently the least feeling rather well. Sitting at the site of the bed. No complaints whatsoever. Maybe a little bit lower extremity edema Past Medical History Past Medical History: Coronary Artery Disease (CAD), Heart Failure, Hyperlipidemia, Hypertension, Myocardial Infarction (AR), Osteoarthritis (OA) Additional Past Medical History / Comment(s): cardiac defib, patient did have episode of acute kidney injury in the past he did not require dialysis. Last Myocardial Infarction Date:: 2008 History of Any Multi-Drug Resistant Organisms: None Reported Past Surgical History: Back Surgery, Coronary Bypass/CABG, Orthopedic Surgery Additional Past Surgical History / Comment(s): CABG 2008, FINGER REPAIR REATTACHEMENT Past Anesthesia/Blood Transfusion Reactions: No Reported Reaction Past Psychological History: Anxiety, Depression Smoking Status: Current every day smoker Past Alcohol Use History: None Reported Past Drug Use History: None Reported - Past Family History Father Family Medical History: No Reported History Mother Family Medical History: Coronary Artery Disease (CAD), Diabetes Mellitus Medications and Allergies Home Medications Medication Instructions Recorded Confirmed Type Albuterol Sulfate [Ventolin HFA] 2 puff INHALATION RT-QID PRN 01/23/16 10/09/16 History Aspirin 325 mg PO DAILY 01/23/16 10/09/16 History Loratadine [Loratadine] 10 mg PO DAILY 01/23/16 10/09/16 History PARoxetine HCL [PARoxetine HCL] 40 mg PO DAILY 01/23/16 10/09/16 History Albuterol Nebulized [Ventolin 2.5 mg INHALATION RT-TID PRN 10/09/16 10/09/16 History Nebulized] Allopurinol [Zyloprim] 300 mg PO DAILY 10/09/16 10/09/16 History Clopidogrel [Plavix] 75 mg PO DAILY 10/09/16 10/09/16 History Ergocalciferol (Vitamin D2) 50,000 unit PO Q7D 10/09/16 10/09/16 History [Vitamin D2] Fluticasone/Vilanterol [Breo 1 puff INHALATION RT-DAILY 10/09/16 10/09/16 History Ellipta 200-25 Mcg INH] Furosemide [Lasix] 40 mg PO DAILY 10/09/16 10/09/16 History Ibuprofen [Motrin] 800 mg PO Q8H PRN 10/09/16 10/09/16 History Montelukast [Singulair] 10 mg PO HS 10/09/16 10/09/16 History OXcarbazepine [Trileptal] 150 mg PO HS 10/09/16 10/09/16 History Omeprazole [PriLOSEC] 20 mg PO DAILY 10/09/16 10/09/16 History Potassium Chloride ER [K-Dur 10] 10 meq PO DAILY 10/09/16 10/09/16 History Simvastatin [Zocor] 40 mg PO HS 10/09/16 10/09/16 History traMADol HCL [Ultram] 50 mg PO BID 10/09/16 10/09/16 History traZODone HCL 50 mg PO HS 10/09/16 10/09/16 History Allergies Allergy/AdvReac Type Severity Reaction Status Date / Time No Known Allergies Allergy Verified 10/09/16 14:38 Physical Exam Osteopathic Statement: *. No significant issues noted on an osteopathic structural exam other than those noted in the History and Physical/Consult. Vitals: Vital Signs Temp Pulse Pulse Resp BP BP Pulse Ox 10/11/16 09:52 88 10/11/16 09:39 90 20 10/11/16 08:55 97.0 F L 60 16 118/71 96 10/11/16 04:00 97 F L 108 H 18 138/67 94 L 10/11/16 00:00 103 H 18 96/68 93 L 10/10/16 21:12 95 10/10/16 21:03 92 10/10/16 20:00 98.1 F 100 18 117/55 95 10/10/16 16:43 96 10/10/16 16:35 96.8 F L 97 20 103/75 99 10/10/16 16:33 96 Intake and Output 10/10/16 10/11/16 10/11/16 22:59 06:59 14:59 Intake Total 700 150 680 Output Total 400 Balance 700 150 280 Intake: Intake, IV Titration 150 Amount Sodium Chloride 0.9% 1, 150 000 ml @ 20 mls/hr IV . Q24H [facility] Rx#:[id number] Oral 700 680 Output: Urine 400 Other: Voiding Method Toilet Toilet Toilet Urinal Urinal Urinal Weight 99.7 kg No acute distress, sitting at the bedside. No respiratory difficulty. HEENT examination is grossly unremarkable. Neck supple. Full range of motion. No adenopathy. Cardiovascular examination reveals distant heart sounds. S1-S2 normal. A soft systolic murmurs noted. No S3-S4. Lungs reveal may be just some very fine bibasilar crackles. Nothing much to speak of. No wheezes. No rhonchi. Breath sounds are equal. Abdomen soft bowel sounds are heard. Extremities reveal some mild edema. Results - Laboratory Findings CBC and BMP: 10/11/16 06:05 10/11/16 05:58 PT/INR, D-dimer PT 13.9 sec (9.0-12.0) H 10/09/16 16:03 INR 1.4 (<1.1) 10/09/16 16:03 D-Dimer 2.93 mg/L FEU (<0.60) H 10/09/16 16:03 Abnormal lab findings: Abnormal Labs 10/09/16 10/10/16 10/10/16 22:43 09:15 09:15 WBC 13.9 H RBC 4.25 L Hgb 10.3 L Hct 35.8 L MCH 24.2 L MCHC 28.8 L RDW 17.8 H Neutrophils # 12.2 H Lymphocytes # Sodium 128 L 128 L Chloride 97 L Carbon Dioxide 18 L 17 L BUN 50 H 49 H Creatinine 1.40 H 1.34 H Glucose 159 H 242 H POC Glucose (mg/dL) Hemoglobin A1c Calcium 7.6 L 7.9 L Iron % Saturation Total Bilirubin 1.6 H ALT 102 H Troponin I Total Protein 6.1 L Albumin 3.0 L 10/10/16 10/10/16 10/10/16 09:15 09:15 11:38 WBC RBC Hgb Hct MCH MCHC RDW Neutrophils # Lymphocytes # Sodium Chloride Carbon Dioxide BUN Creatinine Glucose POC Glucose (mg/dL) 270 H Hemoglobin A1c 7.7 H Calcium Iron 37 L % Saturation 9.4 L Total Bilirubin ALT Troponin I Total Protein Albumin 10/10/16 10/10/16 10/11/16 16:39 21:05 05:58 WBC RBC Hgb Hct MCH MCHC RDW Neutrophils # Lymphocytes # Sodium 132 L Chloride Carbon Dioxide 20 L BUN 37 H Creatinine Glucose 134 H POC Glucose (mg/dL) 206 H 159 H Hemoglobin A1c Calcium 8.2 L Iron % Saturation Total Bilirubin 1.7 H ALT 93 H Troponin I Total Protein 5.8 L Albumin 2.9 L 10/11/16 10/11/16 10/11/16 06:05 06:06 11:28 WBC 11.0 H RBC 4.03 L Hgb 9.6 L Hct 33.2 L MCH 23.9 L MCHC 29.0 L RDW 17.7 H Neutrophils # 9.3 H Lymphocytes # 0.9 L Sodium Chloride Carbon Dioxide BUN Creatinine Glucose POC Glucose (mg/dL) 166 H Hemoglobin A1c Calcium Iron % Saturation Total Bilirubin ALT Troponin I 0.040 H* Total Protein Albumin 10/11/16 11:40 WBC RBC Hgb Hct MCH MCHC RDW Neutrophils # Lymphocytes # Sodium Chloride Carbon Dioxide BUN Creatinine Glucose POC Glucose (mg/dL) 285 H Hemoglobin A1c Calcium Iron % Saturation Total Bilirubin ALT Troponin I Total Protein Albumin - Diagnostic Findings Chest x-ray: image reviewed (X-rays labs and medications are all reviewed.) Assessment and Plan (1) COPD (chronic obstructive pulmonary disease) Status: Acute (2) Hypertension Status: Acute (3) Hyperlipidemia Status: Acute (4) CAD (coronary artery disease) Status: Acute (5) Syncope Status: Acute (6) ARF (acute renal failure) Status: Acute (7) Congestive heart failure Status: Acute (8) Elevated troponin Status: Acute Plan: Plan dated 10/11/2016 The patient's medications are reviewed. We'll get him back on his normal breathing medications. Since we do not have Brio here we'll put him on Symbicort instead. The patient will also get doing nebs 3 times a day and when necessary. We'll continue to follow closely. Prognosis is guarded. Time with Patient: Greater than 30
[2016-10-11] MEDS: CARVEDILOL 6.25 MG TAB PO SCH (15:13)
[2016-10-11 17:18] LABS: Glucose,Whole Blood 135 mg/dL (75-99)
[2016-10-11 20:23] LABS: Glucose,Whole Blood 170 mg/dL (75-99)
[2016-10-11] MEDS: SODIUM CHLORIDE 0.9% 1,000 ML IV SCH (22:01)
[2016-10-11] MEDS: MONTELUKAST 10 MG TAB PO SCH (22:03)
[2016-10-11] MEDS: traZODone HCL 50 MG TAB PO SCH (22:05)
[2016-10-11] MEDS: OXcarbazepine 150 MG TAB PO SCH (22:05)
[2016-10-12] MEDS: LEVOFLOXACIN 750MG-D5W PMX 750 MG in DEXTROSE/WATER 1 150ML.BAG IVPB SCH ×2 (00:23→00:40)
[2016-10-12 05:34] LABS: Glucose,Whole Blood 184 mg/dL (75-99)
[2016-10-12 06:52] LABS: Anisocytosis Slight; Basophils % (A) 0 %; CH 23.7; CHCM 28.8; Eosinophils # (A) 0.1 k/uL (0-0.7); Eosinophils % (A) 1 %; HCT 32.7 % (39.0-53.0); HDW 4.05; HGB 9.2 gm/dL (13.0-17.5); Hypochromasia Marked; Luc # (Auto) 0.22; Luc % (Auto) 2; Lymphocytes # (A) 0.8 k/uL (1.0-4.8); Lymphocytes % (A) 8 %; MCH 23.4 pg (25.0-35.0); MCHC 28.3 g/dL (31.0-37.0); MCV 82.7 fL (80.0-100.0); Mean Platelet Volume 6.9; Monocytes # (A) 0.5 k/uL (0-1.0); Monocytes % (A) 5 %; Neutrophils # (A) 8.9 k/uL (1.3-7.7); Neutrophils % (A) 84 %; Poikilocytosis Moderate; RBC 3.96 m/uL (4.30-5.90); WBC 10.5 k/uL (3.8-10.6); WBC (Perox) 11.18
[2016-10-12] MEDS: INSULIN LISPRO (humaLOG) 300 UNIT/3 ML VIAL SQ SCH ×4 (06:55→21:37)
[2016-10-12] MEDS: PANTOPRAZOLE 40 MG TABLET PO SCH (06:55)
[2016-10-12 06:57] LABS: ALT 78 U/L (21-72); AST 28 U/L (17-59); Alkaline Phosphatase 114 U/L (38-126); Anion Gap 11 mmol/L; Blood Urea Nitrogen 37 mg/dL (9-20); Calcium 7.9 mg/dL (8.4-10.2); Carbon Dioxide 23 mmol/L (22-30); Chloride 96 mmol/L (98-107); Glucose 144 mg/dL (74-99); Magnesium 1.7 mg/dL (1.6-2.3); Non-African American GFR(MDRD) 52 (>60 ml/min/1.73 sqM); Potassium 4.5 mmol/L (3.5-5.1); Sodium 130 mmol/L (137-145); Total Bilirubin 1.3 mg/dL (0.2-1.3); Total Protein 5.6 g/dL (6.3-8.2)
[2016-10-12] MEDS: ASPIRIN 325 MG TAB PO SCH (08:06)
[2016-10-12] MEDS: CARVEDILOL 6.25 MG TAB PO SCH ×2 (08:06→16:52)
[2016-10-12] MEDS: FERROUS SULFATE 325 MG TAB PO SCH ×2 (08:07→21:35)
[2016-10-12] MEDS: CLOPIDOGREL 75 MG TAB PO SCH (08:07)
[2016-10-12] MEDS: LISINOPRIL 5 MG TAB PO SCH (08:08)
[2016-10-12] MEDS: SYMBICORT 160-4.5 MCG INHALER INHALATION SCH ×2 (08:08→19:41)
[2016-10-12] MEDS: IPRATROPIUM-ALBUTEROL 3 ML NEB INHALATION SCH ×4 (08:08→19:41)
[2016-10-12] MEDS: HEPARIN SODIUM,PORCINE 5,000 UNIT/ML 1 ML VIAL SQ SCH ×2 (08:08→21:37)
[2016-10-12] MEDS: LORATADINE 10 MG TAB PO SCH (08:08)
[2016-10-12] MEDS: PARoxetine 20 MG TAB PO SCH (08:09)
[2016-10-12] MEDS: POTASSIUM CHLORIDE ER 10 MEQ TAB.ER.PRT PO SCH (08:09)
[2016-10-12] MEDS: traMADol 50 MG TAB PO SCH ×2 (08:11→21:35)
--- NOTE | 2016-10-12 11:58 | P.PN ---
Subjective Principal diagnosis: congestive heart failure this is a pleasant 61-year-old gentleman with history of coronary artery disease and prior bypass surgery, ischemic cardiomyopathy with severe LV dysfunction, prior AICD implantation, hypertension, who presented to the hospital with progressively worsening leg edema and shortness of breath. He is currently on IV Lasix drip, diuresing well. Echocardiogram with Doppler study was performed which revealed an ejection fraction of 25%.potassium today 4.5, BUN 37, creatinine 1.4. Objective - Vital Signs Vital signs: Vital Signs Temp 96.5 F L 10/12/16 08:00 Pulse 80 10/12/16 08:18 Resp 16 10/12/16 08:00 BP 103/57 10/12/16 08:00 Pulse Ox 94 L 10/12/16 08:00 Intake & Output 10/11/16 10/12/16 10/12/16 18:59 06:59 18:59 Intake Total 860 1640 Output Total 975 1075 Balance -115 565 Weight 102 kg Intake: Intake, IV Titration 80 Amount Furosemide 250 mg In 40 Sodium Chloride 0.9% 225 ml @ 5 MG/HR 5 mls/hr IVP .Q24H [facility] Rx#:[id number] Sodium Chloride 0.9% 1, 40 000 ml @ 20 mls/hr IV . Q24H [facility] Rx#:[id number] Oral 860 1560 Output: Urine 975 1075 Other: Voiding Method Toilet Urinal Urinal Urinal # Voids 1 - Exam PHYSICAL EXAMINATION: HEENT: [Head is atraumatic, normocephalic. Pupils equal, round. Neck is supple. There is no elevated jugular venous pressure.] HEART EXAMINATION: heart S1 and S2 systolic murmur is heard. CHEST EXAMINATION:[ Lungs are clear With mild diminished air entry to bilateral bases. No chest wall tenderness is noted on palpation or with deep breathing.] ABDOMEN: [ Soft, nontender. Bowel sounds are heard. No organomegaly noted]. EXTREMITIES:[ 2+ peripheral pulses with 2+ evidence of peripheral edema and no calf tenderness noted]. NEUROLOGIC [patient is awake, alert and oriented -3.] . - Labs CBC & Chem 7: 10/12/16 05:58 10/12/16 05:58 Labs: Abnormal Lab Results - Last 24 Hours (Table) 10/11/16 10/11/16 10/11/16 Range/Units 11:28 16:58 20:22 RBC (4.30-5.90) m/uL Hgb (13.0-17.5) gm/dL Hct (39.0-53.0) % MCH (25.0-35.0) pg MCHC (31.0-37.0) g/dL RDW (11.5-15.5) % Neutrophils # (1.3-7.7) k/uL Lymphocytes # (1.0-4.8) k/uL Sodium (137-145) mmol/L Chloride (98-107) mmol/L BUN (9-20) mg/dL Creatinine (0.66-1.25) mg/dL Glucose (74-99) mg/dL POC Glucose (mg/dL) 135 H 170 H (75-99) mg/dL Calcium (8.4-10.2) mg/dL ALT (21-72) U/L Troponin I 0.040 H* (0.000-0.034) ng/mL Total Protein (6.3-8.2) g/dL Albumin (3.5-5.0) g/dL 10/12/16 10/12/16 10/12/16 Range/Units 05:32 05:58 05:58 RBC 3.96 L (4.30-5.90) m/uL Hgb 9.2 L (13.0-17.5) gm/dL Hct 32.7 L (39.0-53.0) % MCH 23.4 L (25.0-35.0) pg MCHC 28.3 L (31.0-37.0) g/dL RDW 18.0 H (11.5-15.5) % Neutrophils # 8.9 H (1.3-7.7) k/uL Lymphocytes # 0.8 L (1.0-4.8) k/uL Sodium 130 L (137-145) mmol/L Chloride 96 L (98-107) mmol/L BUN 37 H (9-20) mg/dL Creatinine 1.40 H (0.66-1.25) mg/dL Glucose 144 H (74-99) mg/dL POC Glucose (mg/dL) 184 H (75-99) mg/dL Calcium 7.9 L (8.4-10.2) mg/dL ALT 78 H (21-72) U/L Troponin I (0.000-0.034) ng/mL Total Protein 5.6 L (6.3-8.2) g/dL Albumin 2.9 L (3.5-5.0) g/dL Assessment and Plan (1) Systolic CHF, acute on chronic Status: Acute (2) ARF (acute renal failure) Status: Acute (3) Asthma with exacerbation Status: Acute (4) COPD (chronic obstructive pulmonary disease) Status: Acute (5) Hyperlipidemia Status: Acute (6) Hypertension Status: Acute (7) Hx of CABG Status: Acute (8) Ischemic cardiomyopathy Status: Acute (9) AICD (automatic cardioverter/defibrillator) present Status: Acute Plan: From cardiology's perspective, we'll recommend to continue the patient on current dose of IV Lasix drip.Check lytes BUN and creatinine in the morning. DNP note has been reviewed, I agree with a documented findings and plan of care. Patient was seen and examined.
[2016-10-12] MEDS ORDERED: Magnesium Replacement Protocol 1 EACH MISC MISCELLANE PRN (12:19)
[2016-10-12] MEDS: LEVOFLOXACIN 500 MG TAB PO SCH (13:01)
[2016-10-12] MEDS: ALPRAZolam 0.25 MG TAB PO PRN (13:01)
--- NOTE | 2016-10-12 13:14 | P.PN ---
Subjective Progress note dated 10/12/2016 This is a 61-year-old male that we saw yesterday in consultation for shortness of breath. He had exertional dyspnea as well as orthopnea. He also was he also had a few episodes of near syncope. Apparently came into the emergency room and evaluated there and found to have heart failure. Doing better today. Laying flat in bed. He wants to home. On the pulmonary status standpoint can be discharged home. Patient seemed relatively comfortable. Not receiving any supplemental oxygen. He does have a history of underlying CAD hyperlipidemia hypertension myocardial infarction previous bypass grafting orthopedic procedures as well as COPD from tobacco use. Objective - Vital Signs Vital signs: Vital Signs Temp 96.5 F L 10/12/16 08:00 Pulse 80 10/12/16 08:18 Resp 16 10/12/16 08:00 BP 103/57 10/12/16 08:00 Pulse Ox 94 L 10/12/16 08:00 Intake & Output 10/11/16 10/12/16 10/12/16 18:59 06:59 18:59 Intake Total 860 1640 Output Total 975 1075 Balance -115 565 Weight 102 kg Intake: Intake, IV Titration 80 Amount Furosemide 250 mg In 40 Sodium Chloride 0.9% 225 ml @ 5 MG/HR 5 mls/hr IVP .Q24H [facility] Rx#:[id number] Sodium Chloride 0.9% 1, 40 000 ml @ 20 mls/hr IV . Q24H [facility] Rx#:[id number] Oral 860 1560 Output: Urine 975 1075 Other: Voiding Method Toilet Urinal Urinal Urinal # Voids 1 - Exam No acute distress, oriented 3. Laying flat in bed. HEENT examination is grossly unremarkable. Mucous membranes are moist. No oral lesions. Neck supple. Full range of motion. No adenopathy or thyromegaly. Neck veins are flat. Cardiovascular examination regular rhythm rate. S1-S2 normal. No S3. Slight murmurs heard. Lungs are clear breath sounds are equal. There is no wheezes rhonchi or crackles. Breath sounds are much improved. Abdomen soft bowel sounds are heard. Extremities reveal some mild edema. - Labs CBC & Chem 7: 10/12/16 05:58 10/12/16 05:58 Labs: Abnormal Lab Results - Last 24 Hours (Table) 10/11/16 10/11/16 10/12/16 Range/Units 16:58 20:22 05:32 RBC (4.30-5.90) m/uL Hgb (13.0-17.5) gm/dL Hct (39.0-53.0) % MCH (25.0-35.0) pg MCHC (31.0-37.0) g/dL RDW (11.5-15.5) % Neutrophils # (1.3-7.7) k/uL Lymphocytes # (1.0-4.8) k/uL Sodium (137-145) mmol/L Chloride (98-107) mmol/L BUN (9-20) mg/dL Creatinine (0.66-1.25) mg/dL Glucose (74-99) mg/dL POC Glucose (mg/dL) 135 H 170 H 184 H (75-99) mg/dL Calcium (8.4-10.2) mg/dL ALT (21-72) U/L Total Protein (6.3-8.2) g/dL Albumin (3.5-5.0) g/dL 10/12/16 10/12/16 Range/Units 05:58 05:58 RBC 3.96 L (4.30-5.90) m/uL Hgb 9.2 L (13.0-17.5) gm/dL Hct 32.7 L (39.0-53.0) % MCH 23.4 L (25.0-35.0) pg MCHC 28.3 L (31.0-37.0) g/dL RDW 18.0 H (11.5-15.5) % Neutrophils # 8.9 H (1.3-7.7) k/uL Lymphocytes # 0.8 L (1.0-4.8) k/uL Sodium 130 L (137-145) mmol/L Chloride 96 L (98-107) mmol/L BUN 37 H (9-20) mg/dL Creatinine 1.40 H (0.66-1.25) mg/dL Glucose 144 H (74-99) mg/dL POC Glucose (mg/dL) (75-99) mg/dL Calcium 7.9 L (8.4-10.2) mg/dL ALT 78 H (21-72) U/L Total Protein 5.6 L (6.3-8.2) g/dL Albumin 2.9 L (3.5-5.0) g/dL Assessment and Plan (1) COPD (chronic obstructive pulmonary disease) Status: Acute (2) Hypertension Status: Acute (3) Hyperlipidemia Status: Acute (4) CAD (coronary artery disease) Status: Acute (5) Syncope Status: Acute (6) ARF (acute renal failure) Status: Acute (7) Congestive heart failure Status: Acute (8) Elevated troponin Status: Acute Plan: Plan dated 10/11/2016 The patient's medications are reviewed. We'll get him back on his normal breathing medications. Since we do not have Brio here we'll put him on Symbicort instead. The patient will also get doing nebs 3 times a day and when necessary. We'll continue to follow closely. Prognosis is guarded. Plan dated 10/12/2016 the patient is doing well. The patient could be discharged home from the pulmonary standpoint. We place him on Symbicort because we did not have his medication here. We'll continue to follow. Prognosis is guarded. May be discharged in next day or so. Time with Patient: Less than 30
--- NOTE | 2016-10-12 13:39 | P.PN ---
Subjective Principal diagnosis: Acute systolic heart failure exacerbation Patient is doing fairly well today. He is getting more anxious being in the hospital room and reported that he was in [facility] for several years and is getting dental gross deformity. He is diuresing well otherwise. Objective - Vital Signs Vital signs: Vital Signs Temp 96.5 F L 10/12/16 08:00 Pulse 80 10/12/16 08:18 Resp 16 10/12/16 08:00 BP 103/57 10/12/16 08:00 Pulse Ox 94 L 10/12/16 08:00 Intake & Output 10/11/16 10/12/16 10/12/16 18:59 06:59 18:59 Intake Total 860 1640 Output Total 975 1075 Balance -115 565 Weight 102 kg Intake: Intake, IV Titration 80 Amount Furosemide 250 mg In 40 Sodium Chloride 0.9% 225 ml @ 5 MG/HR 5 mls/hr IVP .Q24H [facility] Rx#:[id number] Sodium Chloride 0.9% 1, 40 000 ml @ 20 mls/hr IV . Q24H [facility] Rx#:[id number] Oral 860 1560 Output: Urine 975 1075 Other: Voiding Method Toilet Urinal Urinal Urinal # Voids 1 - Exam General: The patient is awake and alert, in no distress Eye: there is normal conjunctiva bilaterally. Neck: The neck is supple, there is no JVD. Cardiovascular: Normal S1-S2, no S3-S4, no murmurs. Respiratory: Lungs clear to auscultation bilaterally Gastrointestinal: Abdomen is soft, nontender Musculoskeletal: There is +2 edema. Neurological:. Speech is normal. Skin: Skin is warm and dry - Labs CBC & Chem 7: 10/12/16 05:58 10/12/16 05:58 Labs: Abnormal Lab Results - Last 24 Hours (Table) 10/11/16 10/11/16 10/12/16 Range/Units 16:58 20:22 05:32 RBC (4.30-5.90) m/uL Hgb (13.0-17.5) gm/dL Hct (39.0-53.0) % MCH (25.0-35.0) pg MCHC (31.0-37.0) g/dL RDW (11.5-15.5) % Neutrophils # (1.3-7.7) k/uL Lymphocytes # (1.0-4.8) k/uL Sodium (137-145) mmol/L Chloride (98-107) mmol/L BUN (9-20) mg/dL Creatinine (0.66-1.25) mg/dL Glucose (74-99) mg/dL POC Glucose (mg/dL) 135 H 170 H 184 H (75-99) mg/dL Calcium (8.4-10.2) mg/dL ALT (21-72) U/L Total Protein (6.3-8.2) g/dL Albumin (3.5-5.0) g/dL 10/12/16 10/12/16 Range/Units 05:58 05:58 RBC 3.96 L (4.30-5.90) m/uL Hgb 9.2 L (13.0-17.5) gm/dL Hct 32.7 L (39.0-53.0) % MCH 23.4 L (25.0-35.0) pg MCHC 28.3 L (31.0-37.0) g/dL RDW 18.0 H (11.5-15.5) % Neutrophils # 8.9 H (1.3-7.7) k/uL Lymphocytes # 0.8 L (1.0-4.8) k/uL Sodium 130 L (137-145) mmol/L Chloride 96 L (98-107) mmol/L BUN 37 H (9-20) mg/dL Creatinine 1.40 H (0.66-1.25) mg/dL Glucose 144 H (74-99) mg/dL POC Glucose (mg/dL) (75-99) mg/dL Calcium 7.9 L (8.4-10.2) mg/dL ALT 78 H (21-72) U/L Total Protein 5.6 L (6.3-8.2) g/dL Albumin 2.9 L (3.5-5.0) g/dL Assessment and Plan Plan: 1. Acute systolic congestive heart failure exacerbation: Echo shows an EF of 20 -25%, moderate mitral regurgitation. Mild pulmonary hypertension. Cardiology was consulted. BNP elevated 13,200 on admission. On IV Lasix drip 2. Syncopal episode: Exact etiology unclear. Continue telemetry monitoring. Echo shows an EF of 20 to 25%. No aortic stenosis 3. Acute kidney injury: Creatinine 1.40 on admission. Creatinine is showing improvement. Continue to monitor 4. Hyponatremia: Sodium 126 on admission. Improving 5. Hyperkalemia on admission possibly related to acute kidney injury and potassium supplement. Now corrected. Continue to monitor. 6. Possible pneumonia seen on chest x-ray, on Levaquin. 7. Mildly elevated LFTs with ALT of 117, AST 50, alk phos 144, total bili of 1.7. Hold patient's Zocor. Also could be related to congestive heart failure contributing to fluid congestion in the liver. We'll monitor. Repeat labs in a.m. Liver numbers showing some improvement 8. Elevated d-dimer on admission computed tomography scan of the chest is negative for PE Dopplers were negative for DVT 9. History of hyperlipidemia: Zocor on hold due to elevated LFTs 10. History of myocardial infarction and coronary artery disease with previous CABG 11. Essential hypertension: Blood pressures are stable. 12. COPD with no evidence of exacerbation. 13. Nicotine dependence: Patient is working on smoking cessation. He is down to smoking 1 cigarette a day 14. Episodes of bradycardia: We will patient evaluated by cardiology. Heart rate has been as low as 43 and is currently 97. 15. Cardiorenal syndrome 16. Diabetes mellitus type 2 new diagnosis for this admission. Hemoglobin A1c 7.7. Continue with insulin sliding scale while during hospital station. Patient will require ora agents at discharge. Consult medical educator. Change diet to a consistent carbohydrate diet 17. Iron deficiency anemia. Start patient on ferrous sulfate 325 mg twice a day 18. Mediastinal adenopathy noted on CAT scan. Also patient has history of COPD with no heel painter outpatient. Pulmonary service consulted. GI prophylaxis Protonix and DVT prophylaxis subcu heparin
[2016-10-12 13:42] LABS: Glucose,Whole Blood 152 mg/dL (75-99)
[2016-10-12 16:44] LABS: Glucose,Whole Blood 143 mg/dL (75-99)
[2016-10-12 20:38] LABS: Glucose,Whole Blood 174 mg/dL (75-99)
[2016-10-12] MEDS: MONTELUKAST 10 MG TAB PO SCH (21:35)
[2016-10-12] MEDS: OXcarbazepine 150 MG TAB PO SCH (21:35)
[2016-10-12] MEDS: traZODone HCL 50 MG TAB PO SCH (21:43)
[2016-10-12] MEDS: FUROSEMIDE 250 MG in SODIUM CHLORIDE 0.9% 225 ML IVP SCH (21:43)
[2016-10-13] MEDS: ZOLPIDEM 5 MG TAB PO PRN ×2 (00:19→20:49)
[2016-10-13 05:56] LABS: Glucose,Whole Blood 92 mg/dL (75-99)
[2016-10-13 06:16] LABS: Anisocytosis Slight; Basophils % (A) 0 %; CH 23.7; Eosinophils # (A) 0.1 k/uL (0-0.7); Eosinophils % (A) 1 %; HCT 35.9 % (39.0-53.0); HDW 4.04; HGB 10.3 gm/dL (13.0-17.5); Hypochromasia Marked; Luc # (Auto) 0.22; Luc % (Auto) 2; Lymphocytes # (A) 1.1 k/uL (1.0-4.8); Lymphocytes % (A) 9 %; MCH 23.4 pg (25.0-35.0); MCHC 28.5 g/dL (31.0-37.0); MCV 81.9 fL (80.0-100.0); Mean Platelet Volume 6.8; Monocytes # (A) 0.5 k/uL (0-1.0); Monocytes % (A) 4 %; Neutrophils # (A) 10.2 k/uL (1.3-7.7); Neutrophils % (A) 84 %; Poikilocytosis Moderate; RBC 4.39 m/uL (4.30-5.90); RDW 18.1 % (11.5-15.5); WBC 12.2 k/uL (3.8-10.6); WBC (Perox) 12.48
[2016-10-13 06:21] LABS: ALT 75 U/L (21-72); AST 50 U/L (17-59); Alkaline Phosphatase 118 U/L (38-126); Anion Gap 12 mmol/L; Blood Urea Nitrogen 41 mg/dL (9-20); Calcium 8.1 mg/dL (8.4-10.2); Carbon Dioxide 22 mmol/L (22-30); Chloride 96 mmol/L (98-107); Glucose 75 mg/dL (74-99); Magnesium 1.7 mg/dL (1.6-2.3); Non-African American GFR(MDRD) 57 (>60 ml/min/1.73 sqM); Potassium 4.2 mmol/L (3.5-5.1); Sodium 130 mmol/L (137-145); Total Bilirubin 1.5 mg/dL (0.2-1.3); Total Protein 6.3 g/dL (6.3-8.2)
[2016-10-13] MEDS: INSULIN LISPRO (humaLOG) 300 UNIT/3 ML VIAL SQ SCH ×4 (06:43→20:49)
[2016-10-13] MEDS: PANTOPRAZOLE 40 MG TABLET PO SCH (06:44)
[2016-10-13] MEDS: FUROSEMIDE 250 MG in SODIUM CHLORIDE 0.9% 225 ML IVP SCH (06:44)
[2016-10-13] MEDS: CARVEDILOL 6.25 MG TAB PO SCH (06:44)
[2016-10-13] MEDS: SYMBICORT 160-4.5 MCG INHALER INHALATION SCH ×2 (08:19→20:44)
[2016-10-13] MEDS: IPRATROPIUM-ALBUTEROL 3 ML NEB INHALATION SCH ×4 (08:19→20:44)
[2016-10-13] MEDS: ASPIRIN 325 MG TAB PO SCH (11:03)
[2016-10-13] MEDS: LORATADINE 10 MG TAB PO SCH (11:04)
[2016-10-13] MEDS: HEPARIN SODIUM,PORCINE 5,000 UNIT/ML 1 ML VIAL SQ SCH ×2 (11:04→20:49)
[2016-10-13] MEDS: CLOPIDOGREL 75 MG TAB PO SCH (11:04)
[2016-10-13] MEDS: FERROUS SULFATE 325 MG TAB PO SCH ×2 (11:04→20:48)
[2016-10-13] MEDS: LISINOPRIL 5 MG TAB PO SCH (11:04)
[2016-10-13] MEDS: POTASSIUM CHLORIDE ER 10 MEQ TAB.ER.PRT PO SCH (11:05)
[2016-10-13] MEDS: PARoxetine 20 MG TAB PO SCH (11:05)
[2016-10-13] MEDS: traMADol 50 MG TAB PO SCH (11:05)
[2016-10-13 11:51] LABS: Glucose,Whole Blood 165 mg/dL (75-99)
--- NOTE | 2016-10-13 12:20 | P.PN ---
Subjective Progress note dated 10/12/2016 This is a 61-year-old male that we saw yesterday in consultation for shortness of breath. He had exertional dyspnea as well as orthopnea. He also was he also had a few episodes of near syncope. Apparently came into the emergency room and evaluated there and found to have heart failure. Doing better today. Laying flat in bed. He wants to home. On the pulmonary status standpoint can be discharged home. Patient seemed relatively comfortable. Not receiving any supplemental oxygen. He does have a history of underlying CAD hyperlipidemia hypertension myocardial infarction previous bypass grafting orthopedic procedures as well as COPD from tobacco use. Progress note dated 10/13/2016 next 61-year-old gentleman seen in consultation 2 days ago. Also seen yesterday in follow-up. He came with complaints of shortness of breath or sick exertional dyspnea and orthopnea with lower summary edema. He also had some near syncopal episodes. Doing much better now. Came in with a diagnosis of CHF. Would like to be discharged home. Has a history of underlying CAD hyperlipidemia hypertension myocardial infarction previous bypass grafting and various orthopedic procedures. Also likely has some underlying COPD from previous heavy tobacco use. Again feeling much better today. Objective - Vital Signs Vital signs: Vital Signs Temp 96 F L 10/13/16 08:00 Pulse 90 10/13/16 11:46 Resp 16 10/13/16 11:35 BP 88/57 10/13/16 08:00 Pulse Ox 98 10/13/16 00:00 Intake & Output 10/12/16 10/13/16 10/13/16 18:59 06:59 18:59 Intake Total 1525 240 Output Total 600 Balance 925 240 Weight 99.7 kg Intake: Intake, IV Titration 565 Amount Furosemide 250 mg In 255 Sodium Chloride 0.9% 225 ml @ 5 MG/HR 5 mls/hr IVP .Q24H [facility] Rx#:[id number] Levofloxacin 750Mg-D5w 150 Pmx 750 mg In Dextrose/ Water 1 150ml.bag @ 100 mls/hr IVPB Q24H [facility] Rx#: [id number] Sodium Chloride 0.9% 1, 160 000 ml @ 20 mls/hr IV . Q24H [facility] Rx#:[id number] Oral 960 240 Output: Urine 600 Other: Voiding Method Urinal Urinal Urinal - Exam No acute distress, oriented 3. Laying flat in bed. HEENT examination is grossly unremarkable. Mucous membranes are moist. No oral lesions. Neck supple. Full range of motion. No adenopathy or thyromegaly. Neck veins are flat. Cardiovascular examination regular rhythm rate. S1-S2 normal. No S3. Slight murmurs heard. Lungs are clear breath sounds are equal. There is no wheezes rhonchi or crackles. Breath sounds are much improved. Abdomen soft bowel sounds are heard. Extremities reveal some mild edema. - Labs CBC & Chem 7: 10/13/16 05:45 10/13/16 05:45 Labs: Abnormal Lab Results - Last 24 Hours (Table) 10/12/16 10/12/16 10/12/16 Range/Units 13:39 16:39 20:37 WBC (3.8-10.6) k/uL Hgb (13.0-17.5) gm/dL Hct (39.0-53.0) % MCH (25.0-35.0) pg MCHC (31.0-37.0) g/dL RDW (11.5-15.5) % Neutrophils # (1.3-7.7) k/uL Sodium (137-145) mmol/L Chloride (98-107) mmol/L BUN (9-20) mg/dL Creatinine (0.66-1.25) mg/dL POC Glucose (mg/dL) 152 H 143 H 174 H (75-99) mg/dL Calcium (8.4-10.2) mg/dL Total Bilirubin (0.2-1.3) mg/dL ALT (21-72) U/L Albumin (3.5-5.0) g/dL 10/13/16 10/13/16 10/13/16 Range/Units 05:45 05:45 11:34 WBC 12.2 H (3.8-10.6) k/uL Hgb 10.3 L (13.0-17.5) gm/dL Hct 35.9 L (39.0-53.0) % MCH 23.4 L (25.0-35.0) pg MCHC 28.5 L (31.0-37.0) g/dL RDW 18.1 H (11.5-15.5) % Neutrophils # 10.2 H (1.3-7.7) k/uL Sodium 130 L (137-145) mmol/L Chloride 96 L (98-107) mmol/L BUN 41 H (9-20) mg/dL Creatinine 1.29 H (0.66-1.25) mg/dL POC Glucose (mg/dL) 165 H (75-99) mg/dL Calcium 8.1 L (8.4-10.2) mg/dL Total Bilirubin 1.5 H (0.2-1.3) mg/dL ALT 75 H (21-72) U/L Albumin 3.2 L (3.5-5.0) g/dL Assessment and Plan (1) COPD (chronic obstructive pulmonary disease) Status: Acute (2) Hypertension Status: Acute (3) Hyperlipidemia Status: Acute (4) CAD (coronary artery disease) Status: Acute (5) Syncope Status: Acute (6) ARF (acute renal failure) Status: Acute (7) Congestive heart failure Status: Acute (8) Elevated troponin Status: Acute Plan: Plan dated 10/11/2016 The patient's medications are reviewed. We'll get him back on his normal breathing medications. Since we do not have Brio here we'll put him on Symbicort instead. The patient will also get doing nebs 3 times a day and when necessary. We'll continue to follow closely. Prognosis is guarded. Plan dated 10/12/2016 the patient is doing well. The patient could be discharged home from the pulmonary standpoint. We place him on Symbicort because we did not have his medication here. We'll continue to follow. Prognosis is guarded. May be discharged in next day or so. Plan dated 10/13/2016 The patient is doing much better. Feeling much better. She'll lay flat without becoming short of breath. Denies any fever chills. No nausea vomiting or diarrhea. No chest pain. No chest discomfort. Much less short of breath. Again hoping to go home soon. Time with Patient: Less than 30
--- NOTE | 2016-10-13 14:27 | P.PN ---
Subjective Patient is doing well today. Objective - Vital Signs Vital signs: Vital Signs Temp 96 F L 10/13/16 08:00 Pulse 90 10/13/16 11:46 Resp 16 10/13/16 11:35 BP 88/57 10/13/16 08:00 Pulse Ox 98 10/13/16 00:00 Intake & Output 10/12/16 10/13/16 10/13/16 18:59 06:59 18:59 Intake Total 1525 240 Output Total 600 Balance 925 240 Weight 99.7 kg Intake: Intake, IV Titration 565 Amount Furosemide 250 mg In 255 Sodium Chloride 0.9% 225 ml @ 5 MG/HR 5 mls/hr IVP .Q24H [facility] Rx#:[id number] Levofloxacin 750Mg-D5w 150 Pmx 750 mg In Dextrose/ Water 1 150ml.bag @ 100 mls/hr IVPB Q24H [facility] Rx#: [id number] Sodium Chloride 0.9% 1, 160 000 ml @ 20 mls/hr IV . Q24H [facility] Rx#:[id number] Oral 960 240 Output: Urine 600 Other: Voiding Method Urinal Urinal Urinal - Exam General: The patient is awake and alert, in no distress Eye: there is normal conjunctiva bilaterally. Neck: The neck is supple, there is no JVD. Cardiovascular: Normal S1-S2, no S3-S4, no murmurs. Respiratory: Lungs clear to auscultation bilaterally Gastrointestinal: Abdomen is soft, nontender Musculoskeletal: There is +2 edema. Neurological:. Speech is normal. Skin: Skin is warm and dry - Labs CBC & Chem 7: 10/13/16 05:45 10/13/16 05:45 Labs: Abnormal Lab Results - Last 24 Hours (Table) 10/12/16 10/12/16 10/13/16 Range/Units 16:39 20:37 05:45 WBC 12.2 H (3.8-10.6) k/uL Hgb 10.3 L (13.0-17.5) gm/dL Hct 35.9 L (39.0-53.0) % MCH 23.4 L (25.0-35.0) pg MCHC 28.5 L (31.0-37.0) g/dL RDW 18.1 H (11.5-15.5) % Neutrophils # 10.2 H (1.3-7.7) k/uL Sodium (137-145) mmol/L Chloride (98-107) mmol/L BUN (9-20) mg/dL Creatinine (0.66-1.25) mg/dL POC Glucose (mg/dL) 143 H 174 H (75-99) mg/dL Calcium (8.4-10.2) mg/dL Total Bilirubin (0.2-1.3) mg/dL ALT (21-72) U/L Albumin (3.5-5.0) g/dL 10/13/16 10/13/16 Range/Units 05:45 11:34 WBC (3.8-10.6) k/uL Hgb (13.0-17.5) gm/dL Hct (39.0-53.0) % MCH (25.0-35.0) pg MCHC (31.0-37.0) g/dL RDW (11.5-15.5) % Neutrophils # (1.3-7.7) k/uL Sodium 130 L (137-145) mmol/L Chloride 96 L (98-107) mmol/L BUN 41 H (9-20) mg/dL Creatinine 1.29 H (0.66-1.25) mg/dL POC Glucose (mg/dL) 165 H (75-99) mg/dL Calcium 8.1 L (8.4-10.2) mg/dL Total Bilirubin 1.5 H (0.2-1.3) mg/dL ALT 75 H (21-72) U/L Albumin 3.2 L (3.5-5.0) g/dL Assessment and Plan Plan: 1. Acute systolic congestive heart failure exacerbation: Echo shows an EF of 20 -25%, moderate mitral regurgitation. Mild pulmonary hypertension. Cardiology was consulted. BNP elevated 13,200 on admission. 2. Syncopal episode: Exact etiology unclear. In sinus rhythm, Continue telemetry monitoring. Echo shows an EF of 20 to 25%. No aortic stenosis 3. Acute kidney injury: Creatinine 1.40 on admission. Creatinine is showing improvement. Continue to monitor 4. Hyponatremia: Sodium 126 on admission. Improving 5. Hyperkalemia on admission possibly related to acute kidney injury and potassium supplement. Now corrected. Continue to monitor. 6. Possible pneumonia seen on chest x-ray, on Levaquin. 7. Mildly elevated LFTs on presentation : Hold patient's Zocor. Liver numbers showing some improvement 8. Elevated d-dimer on admission computed tomography scan of the chest is negative for PE Dopplers were negative for DVT 9. History of hyperlipidemia: Zocor on hold due to elevated LFTs 10. History of myocardial infarction and coronary artery disease with previous CABG 11. Essential hypertension: Blood pressures are stable. 12. COPD with no evidence of exacerbation. 13. Nicotine dependence: Patient is working on smoking cessation. He is down to smoking 1 cigarette a day 14. Episodes of bradycardia: We will patient evaluated by cardiology. Heart rate has been as low as 43 and is currently 97. 15. Cardiorenal syndrome 16. Diabetes mellitus type 2 new diagnosis for this admission. Hemoglobin A1c 7.7. Continue with insulin sliding scale while during hospital station. Patient will require ora agents at discharge. Consult assistant health educator. Change diet to a consistent carbohydrate diet 17. Iron deficiency anemia. Start patient on ferrous sulfate 325 mg twice a day 18. Mediastinal adenopathy noted on CAT scan. 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 Pulmonary service consulted. GI prophylaxis Protonix and DVT prophylaxis subcu heparin Plan for today: Switch Lasix to IV push. Continue supportive care. Repeat lab work in the morning.
--- NOTE | 2016-10-13 15:40 | PN ---
Mr. Watson is better today. He was on a Lasix drip and he has lost substantial weight. He feels better. His magnesium is slightly lower. I am switching him to IV push Lasix 40 mg q.8 hours and tomorrow we can switch him to oral. Will also supplement some potassium and magnesium. Clinically, he looks and feels better. He has history of ischemic cardiomyopathy, severe LV dysfunction, prior ICD placement. Clinically, there is improvement. Vital signs are stable with a systolic blood pressure of about 104/60, pulse rate is about 80 per minute. JVD is evident 1 cm, no carotid bruit. S1, S2 heard normally with a short systolic murmur. Lungs are clear. Abdomen and lower extremity exam otherwise is unchanged. Edema of lower extremities has improved but persists. Plan is to continue diuresis with IV push Lasix and supplement magnesium and potassium and check BMP in the morning. Discussed my thoughts in detail with the patient.
[2016-10-13] MEDS: HYDROcodone/APAP 5-325MG 1 EACH TAB PO PRN ×2 (15:46→23:07)
[2016-10-13] MEDS: MAGNESIUM SULFATE-D5W PMX 1 GM in DEXTROSE/WATER 1 100ML.BAG IVPB SCH ×2 (15:58→16:06)
[2016-10-13] MEDS: FUROSEMIDE 10 MG/ML 4 ML VIAL IV SCH ×2 (16:12→23:13)
[2016-10-13 17:05] LABS: Glucose,Whole Blood 115 mg/dL (75-99)
[2016-10-13] MEDS: CARVEDILOL 3.125 MG TAB PO SCH (17:21)
[2016-10-13 20:39] LABS: Glucose,Whole Blood 117 mg/dL (75-99)
[2016-10-13] MEDS: LEVOFLOXACIN 500 MG TAB PO SCH (20:48)
[2016-10-13] MEDS: MONTELUKAST 10 MG TAB PO SCH (20:48)
[2016-10-13] MEDS: OXcarbazepine 150 MG TAB PO SCH (20:48)
[2016-10-13] MEDS: traZODone HCL 50 MG TAB PO SCH (20:57)
[2016-10-14] MEDS: HYDROcodone/APAP 5-325MG 1 EACH TAB PO PRN ×4 (05:05→20:11)
[2016-10-14 05:37] LABS: Glucose,Whole Blood 103 mg/dL (75-99)
[2016-10-14 06:19] LABS: Anisocytosis Slight; Basophils % (A) 0 %; CH 23.8; CHCM 29.3; Eosinophils # (A) 0.2 k/uL (0-0.7); Eosinophils % (A) 2 %; HCT 34.3 % (39.0-53.0); HDW 4.11; HGB 10.1 gm/dL (13.0-17.5); Hypochromasia Marked; Luc # (Auto) 0.18; Luc % (Auto) 2; Lymphocytes # (A) 0.9 k/uL (1.0-4.8); Lymphocytes % (A) 9 %; MCHC 29.4 g/dL (31.0-37.0); MCV 81.7 fL (80.0-100.0); Mean Platelet Volume 6.8; Microcytosis Slight; Monocytes # (A) 0.4 k/uL (0-1.0); Monocytes % (A) 4 %; Neutrophils # (A) 8.2 k/uL (1.3-7.7); Neutrophils % (A) 82 %; Poikilocytosis Moderate; RDW 18.4 % (11.5-15.5); WBC (Perox) 10.25
[2016-10-14 06:28] LABS: ALT 66 U/L (21-72); AST 33 U/L (17-59); Alkaline Phosphatase 120 U/L (38-126); Anion Gap 12 mmol/L; Blood Urea Nitrogen 45 mg/dL (9-20); Calcium 8.2 mg/dL (8.4-10.2); Carbon Dioxide 22 mmol/L (22-30); Chloride 97 mmol/L (98-107); Glucose 92 mg/dL (74-99); Magnesium 2.1 mg/dL (1.6-2.3); Non-African American GFR(MDRD) 53 (>60 ml/min/1.73 sqM); Potassium 4.3 mmol/L (3.5-5.1); Sodium 131 mmol/L (137-145); Total Bilirubin 1.7 mg/dL (0.2-1.3); Total Protein 6.1 g/dL (6.3-8.2)
[2016-10-14] MEDS: INSULIN LISPRO (humaLOG) 300 UNIT/3 ML VIAL SQ SCH ×4 (06:52→21:17)
[2016-10-14] MEDS: PANTOPRAZOLE 40 MG TABLET PO SCH (06:53)
[2016-10-14] MEDS: CARVEDILOL 3.125 MG TAB PO SCH ×2 (06:53→16:34)
[2016-10-14] MEDS: IPRATROPIUM-ALBUTEROL 3 ML NEB INHALATION SCH ×4 (07:13→19:30)
[2016-10-14] MEDS: SYMBICORT 160-4.5 MCG INHALER INHALATION SCH ×2 (07:13→19:30)
[2016-10-14] MEDS: ASPIRIN 81 MG CHEW PO SCH (08:11)
[2016-10-14] MEDS: PARoxetine 20 MG TAB PO SCH (08:11)
[2016-10-14] MEDS: LORATADINE 10 MG TAB PO SCH (08:11)
[2016-10-14] MEDS: FUROSEMIDE 10 MG/ML 4 ML VIAL IV SCH ×3 (08:11→23:27)
[2016-10-14] MEDS: LISINOPRIL 5 MG TAB PO SCH (08:12)
[2016-10-14] MEDS: FERROUS SULFATE 325 MG TAB PO SCH ×2 (08:12→20:12)
[2016-10-14] MEDS: CLOPIDOGREL 75 MG TAB PO SCH (08:12)
[2016-10-14] MEDS: POTASSIUM CHLORIDE ER 10 MEQ TAB.ER.PRT PO SCH (08:12)
[2016-10-14] MEDS: HEPARIN SODIUM,PORCINE 5,000 UNIT/ML 1 ML VIAL SQ SCH ×2 (08:12→20:12)
--- NOTE | 2016-10-14 11:24 | P.PN ---
Subjective Patient presented with shortness of breath bilateral lower extremity edema with swelling into the abdomen. Patient did require IV Lasix drip over the weekend. He's currently on Lasix 40 mg IV push every 8 hours. Patient still has edema in the lower extremities. There has been some improvement. Patient denies any chest pain, nausea or vomiting, bowel movement changes or urinary symptoms. Objective - Vital Signs Vital signs: Vital Signs Temp 97.1 F L 10/14/16 08:00 Pulse 88 10/14/16 11:08 Resp 18 10/14/16 08:00 BP 114/74 10/14/16 08:00 Pulse Ox 98 10/14/16 08:00 Intake & Output 10/13/16 10/14/16 10/14/16 18:59 06:59 18:59 Intake Total 360 1360 150 Output Total 800 Balance 360 560 150 Weight 101.2 kg Intake: IV 160 0.9 160 Intake, IV Titration 120 Amount Magnesium Sulfate-D5w Pmx 120 1 gm In Dextrose/Water 1 100ml.bag @ 100 mls/hr IVPB Q1H [facility] Rx#: [id number] Oral 240 1200 150 Output: Urine 800 Other: Voiding Method Urinal Urinal # Voids 1 - Exam Head normocephalic Neck supple Lungs clear to auscultation bilaterally no wheezing or crackles Heart regular rate and rhythm S1-S2, no rub or gallop Abdomen is soft nontender abdominal distention positive bowel sounds no hepatosplenomegaly Extremities 2+ pitting lower extremity edema bilaterally up to the knees. Some improvement in the abdominal swelling Neuro alert and orientated to 3 - Labs CBC & Chem 7: 10/14/16 06:04 10/14/16 06:04 Labs: Abnormal Lab Results - Last 24 Hours (Table) 10/13/16 10/13/16 10/13/16 Range/Units 11:34 16:52 20:38 RBC (4.30-5.90) m/uL Hgb (13.0-17.5) gm/dL Hct (39.0-53.0) % MCH (25.0-35.0) pg MCHC (31.0-37.0) g/dL RDW (11.5-15.5) % Neutrophils # (1.3-7.7) k/uL Lymphocytes # (1.0-4.8) k/uL Sodium (137-145) mmol/L Chloride (98-107) mmol/L BUN (9-20) mg/dL Creatinine (0.66-1.25) mg/dL POC Glucose (mg/dL) 165 H 115 H 117 H (75-99) mg/dL Calcium (8.4-10.2) mg/dL Total Bilirubin (0.2-1.3) mg/dL Total Protein (6.3-8.2) g/dL Albumin (3.5-5.0) g/dL 10/14/16 10/14/16 10/14/16 Range/Units 05:36 06:04 06:04 RBC 4.20 L (4.30-5.90) m/uL Hgb 10.1 L (13.0-17.5) gm/dL Hct 34.3 L (39.0-53.0) % MCH 24.0 L (25.0-35.0) pg MCHC 29.4 L (31.0-37.0) g/dL RDW 18.4 H (11.5-15.5) % Neutrophils # 8.2 H (1.3-7.7) k/uL Lymphocytes # 0.9 L (1.0-4.8) k/uL Sodium 131 L (137-145) mmol/L Chloride 97 L (98-107) mmol/L BUN 45 H (9-20) mg/dL Creatinine 1.37 H (0.66-1.25) mg/dL POC Glucose (mg/dL) 103 H (75-99) mg/dL Calcium 8.2 L (8.4-10.2) mg/dL Total Bilirubin 1.7 H (0.2-1.3) mg/dL Total Protein 6.1 L (6.3-8.2) g/dL Albumin 3.2 L (3.5-5.0) g/dL Assessment and Plan Plan: 1. Acute systolic congestive heart failure exacerbation: Echo shows an EF of 20 -25%, moderate mitral regurgitation. Mild pulmonary hypertension. Cardiology was consulted. BNP elevated 13,200 on admission. Patient's Lasix drip discontinued and patient started on IV Lasix 40 every 8 hours yesterday. Await repeat chest x-ray 2. Syncopal episode: Exact etiology unclear. Continue to monitor monitoring. Monitor for cardiac arrhythmias. Echo shows an EF of 20 to 25%. No aortic stenosis 3. Acute kidney injury: Creatinine 1.40 on admission. Creatinine is showing improvement. Continue to monitor 4. Hyponatremia: Sodium 126 on admission. Continue to monitor. Repeat labs in a.m. Sodium level is 131 today 5. Hyperkalemia on admission possibly related to acute kidney injury and potassium supplement. Now corrected. Continue to monitor. 6. Possible pneumonia: Chest x-ray showing a lingular infiltrate. Patient started on Levaquin. 7. Mildly elevated LFTs on admission. Zocor on hold. Liver numbers have improved. Likely related to fluid congestion in the liver 8. Elevated d-dimer on admission computed tomography scan of the chest is negative for PE Dopplers were negative for DVT 9. History of hyperlipidemia: Zocor on hold due to elevated LFTs 10. History of myocardial infarction and coronary artery disease with previous CABG 11. Essential hypertension: Blood pressures are stable. 12. COPD with no evidence of exacerbation. 13. Nicotine dependence: Patient is working on smoking cessation. He is down to smoking 1 cigarette a day 14. Episodes of bradycardia: We will patient evaluated by cardiology. Heart rate has been as low as 43 and is currently 97. 15. Cardiorenal syndrome 16. Diabetes mellitus type 2 new diagnosis for this admission. Hemoglobin A1c 7.7. Continue with insulin sliding scale while during hospital station. Patient will require oral hypoglycemic agent at discharge. Consult critical care educator. Change diet to a consistent carbohydrate diet 17. Iron deficiency anemia. Start patient on ferrous sulfate 325 mg twice a day. Hemoglobin 9.6. Iron level 37 18. Mediastinal adenopathy noted on CAT scan. 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 Pulmonary service consulted. Consult physical therapy GI prophylaxis Protonix and DVT prophylaxis subcu heparin
[2016-10-14 11:55] LABS: Glucose,Whole Blood 192 mg/dL (75-99)
--- NOTE | 2016-10-14 15:07 | XR ---
EXAMINATION TYPE: XR chest 2V DATE OF EXAM: 10/14/2016 1:54 PM COMPARISON: 10/10/2016 and 10/09/2016 HISTORY: 61-year-old male follow-up CHF TECHNIQUE: Frontal and lateral views FINDINGS: Heart remains mildly enlarged. Left anterior chest wall AICD generator with right atrial and right ve ntricular leads. The right atrial lead is malpositioned into the azygos vein. Some strandy atelectasi s at the lower lungs with continued small left pleural effusion. Median sternotomy wires. IMPRESSION: 1. Continued small left pleural effusion with adjacent atelectasis and/or consolidation. 2. Note that the right atrial AICD lead remains malpositioned back into the azygos vein.
[2016-10-14 16:56] LABS: Glucose,Whole Blood 139 mg/dL (75-99)
--- NOTE | 2016-10-14 17:18 | P.PN ---
Subjective 61-year-old male patient with cardiomyopathy/CHF, previous AICD, and diabetes mellitus with came into the hospital because of difficulty in breathing, shortness of breath, acute CHF exacerbation knowing that he has an ejection fraction of around 20-25% along with moderate degree of mitral regurgitation. BNP level was significantly elevated at time of admission and order of 15,000. He also had a acute kidney injury with a creatinine of 1.4 that was thought to be related to cardiorenal factors which is improving. The patient was also hyponatremic and this is again another manifestation of CHF. Pneumonia was suspected and the patient was placed also on Levaquin. He is doing well. No cardiac arrhythmias of been noted. No syncope. No chest pain. No other significant events overnight. CAT scan of the chest was noted in the mediastinal lymph nodes are quite small and do not warrant any intervention at this point. Objective - Vital Signs Vital signs: Vital Signs Temp 97.4 F L 10/14/16 16:00 Pulse 89 10/14/16 16:00 Resp 18 10/14/16 16:00 BP 80/54 10/14/16 16:00 Pulse Ox 95 10/14/16 16:00 Intake & Output 10/13/16 10/14/16 10/14/16 18:59 06:59 18:59 Intake Total 360 1360 372 Output Total 800 Balance 360 560 372 Weight 101.2 kg Intake: IV 160 0.9 160 Intake, IV Titration 120 Amount Magnesium Sulfate-D5w Pmx 120 1 gm In Dextrose/Water 1 100ml.bag @ 100 mls/hr IVPB Q1H [facility] Rx#: [id number] Oral 240 1200 372 Output: Urine 800 Other: Voiding Method Urinal Urinal Urinal # Voids 1 - Exam Head exam was generally normal. There was no scleral icterus or corneal arcus. Mucous membranes were moist.Neck was supple and without jugular venous distension, thyromegaly, or carotid bruits. Carotids were easily palpable bilaterally. There was no adenopathy. Lung sounds are diminished bilaterally along with some few crackles at lung bases. Heart sounds are regular, positive S1-S2 and there is no significant murmurs appreciated. The AICD can be felt over the anterior chest.Abdominal exam revealed normal bowel sounds. The abdomen was soft, non-tender, and without masses, organomegaly, or appreciable enlargement of the abdominal aorta.Examination of the extremities revealed easily palpable radial, femoral and pedal pulses. There was no cyanosis, clubbing or edema. - Labs CBC & Chem 7: 10/14/16 06:04 10/14/16 06:04 Labs: Abnormal Lab Results - Last 24 Hours (Table) 10/13/16 10/14/16 10/14/16 Range/Units 20:38 05:36 06:04 RBC 4.20 L (4.30-5.90) m/uL Hgb 10.1 L (13.0-17.5) gm/dL Hct 34.3 L (39.0-53.0) % MCH 24.0 L (25.0-35.0) pg MCHC 29.4 L (31.0-37.0) g/dL RDW 18.4 H (11.5-15.5) % Neutrophils # 8.2 H (1.3-7.7) k/uL Lymphocytes # 0.9 L (1.0-4.8) k/uL Sodium (137-145) mmol/L Chloride (98-107) mmol/L BUN (9-20) mg/dL Creatinine (0.66-1.25) mg/dL POC Glucose (mg/dL) 117 H 103 H (75-99) mg/dL Calcium (8.4-10.2) mg/dL Total Bilirubin (0.2-1.3) mg/dL Total Protein (6.3-8.2) g/dL Albumin (3.5-5.0) g/dL 10/14/16 10/14/16 10/14/16 Range/Units 06:04 11:49 16:42 RBC (4.30-5.90) m/uL Hgb (13.0-17.5) gm/dL Hct (39.0-53.0) % MCH (25.0-35.0) pg MCHC (31.0-37.0) g/dL RDW (11.5-15.5) % Neutrophils # (1.3-7.7) k/uL Lymphocytes # (1.0-4.8) k/uL Sodium 131 L (137-145) mmol/L Chloride 97 L (98-107) mmol/L BUN 45 H (9-20) mg/dL Creatinine 1.37 H (0.66-1.25) mg/dL POC Glucose (mg/dL) 192 H 139 H (75-99) mg/dL Calcium 8.2 L (8.4-10.2) mg/dL Total Bilirubin 1.7 H (0.2-1.3) mg/dL Total Protein 6.1 L (6.3-8.2) g/dL Albumin 3.2 L (3.5-5.0) g/dL Assessment and Plan Plan: Assessment 1 acute CHF exacerbation. The patient has underlying cardiac myopathy with an ejection fraction of 20-25% and the patient was treated with IV diuretics with subsequent improvement clinically and radiographically. There is some residual small left-sided pleural effusion with adjacent atelectasis 2 shortness of breath improving 3 acute kidney injury improving For hyponatremia improved 5 suspected pneumonia and the patient is currently on Levaquin as an empiric antibiotic coverage 6 hyperlipidemia 7 coronary artery disease with previous bypass surgery 8 COPD 9 hypertension 10 nicotine addiction/smoking 11 diabetes mellitus type 2 13 iron deficiency anemia 14 nonspecific mediastinal lymphadenopathy that was no immediate attention or intervention at this point. Plan Continue IV Lasix for another 24 hours. Monitor renal function. Monitor electrolytes. Ablate the patient the hallway. Increase PT as tolerated. Continue the Levaquin. Discharge planning is in progress.
[2016-10-14] MEDS: ZOLPIDEM 5 MG TAB PO PRN (20:11)
[2016-10-14] MEDS: LEVOFLOXACIN 500 MG TAB PO SCH (20:12)
[2016-10-14] MEDS: OXcarbazepine 150 MG TAB PO SCH (20:12)
[2016-10-14] MEDS: MONTELUKAST 10 MG TAB PO SCH (20:12)
[2016-10-14 21:01] LABS: Glucose,Whole Blood 111 mg/dL (75-99)
[2016-10-14] MEDS: traZODone HCL 50 MG TAB PO SCH (21:17)
[2016-10-15] MEDS: HYDROcodone/APAP 5-325MG 1 EACH TAB PO PRN ×2 (03:39→13:14)
[2016-10-15 06:01] LABS: Glucose,Whole Blood 143 mg/dL (75-99)
[2016-10-15 06:43] LABS: Anisocytosis Slight; Basophils # (A) 0.2 k/uL (0-0.2); Basophils % (A) 2 %; CH 23.8; CHCM 26.4; Eosinophils # (A) 0.2 k/uL (0-0.7); Eosinophils % (A) 2 %; HCT 38.1 % (39.0-53.0); HDW 3.63; HGB 10.5 gm/dL (13.0-17.5); Hypochromasia Marked; Luc # (Auto) 0.23; Luc % (Auto) 2; Lymphocytes # (A) 0.8 k/uL (1.0-4.8); Lymphocytes % (A) 8 %; MCHC 27.6 g/dL (31.0-37.0); MCV 90.5 fL (80.0-100.0); Mean Platelet Volume 8.3; Monocytes # (A) 0.6 k/uL (0-1.0); Monocytes % (A) 6 %; Neutrophils % (A) 80 %; Poikilocytosis Slight; RDW 19.2 % (11.5-15.5)
[2016-10-15 06:56] LABS: Calcium 8.4 mg/dL (8.4-10.2); Magnesium 2.2 mg/dL (1.6-2.3); Potassium 5.2 mmol/L (3.5-5.1); Total Bilirubin 1.7 mg/dL (0.2-1.3)
[2016-10-15] MEDS: PANTOPRAZOLE 40 MG TABLET PO SCH (06:59)
[2016-10-15] MEDS: CARVEDILOL 3.125 MG TAB PO SCH ×2 (06:59→18:19)
[2016-10-15] MEDS: INSULIN LISPRO (humaLOG) 300 UNIT/3 ML VIAL SQ SCH ×4 (06:59→21:37)
[2016-10-15] MEDS: FUROSEMIDE 10 MG/ML 4 ML VIAL IV SCH ×2 (08:10→15:43)
[2016-10-15] MEDS: IPRATROPIUM-ALBUTEROL 3 ML NEB INHALATION SCH ×4 (08:16→20:53)
[2016-10-15] MEDS: SYMBICORT 160-4.5 MCG INHALER INHALATION SCH ×2 (08:16→20:53)
[2016-10-15] MEDS: HEPARIN SODIUM,PORCINE 5,000 UNIT/ML 1 ML VIAL SQ SCH ×2 (08:53→20:15)
[2016-10-15] MEDS: FERROUS SULFATE 325 MG TAB PO SCH ×2 (08:54→20:14)
[2016-10-15] MEDS: LORATADINE 10 MG TAB PO SCH (08:54)
[2016-10-15] MEDS: PARoxetine 20 MG TAB PO SCH (08:54)
[2016-10-15] MEDS: LISINOPRIL 5 MG TAB PO SCH (08:54)
[2016-10-15] MEDS: CLOPIDOGREL 75 MG TAB PO SCH (08:55)
[2016-10-15] MEDS: ASPIRIN 81 MG CHEW PO SCH (08:55)
[2016-10-15 11:32] LABS: Glucose,Whole Blood 145 mg/dL (75-99)
--- NOTE | 2016-10-15 12:10 | P.PN ---
Subjective Principal diagnosis: Acute systolic congestive heart failure exacerbation Patient is a 61-year-old male who presented to [facility] with severe shortness of breath and bilateral lower extremity edema, he was started on IV Lasix drip he was admitted to telemetry floor he improved gradually he was switched to IV Lasix 40 mg every 8 hours. Patient has known history of ischemic cardiomyopathy with the severely impaired left ventricular function with ejection fraction of 20-25% he has previous history of AICD placement. Objective - Vital Signs Vital signs: Vital Signs Temp 96.9 F L 10/15/16 08:00 Pulse 84 10/15/16 12:01 Resp 20 10/15/16 08:00 BP 138/64 10/15/16 08:00 Pulse Ox 99 10/15/16 08:16 Intake & Output 10/14/16 10/15/16 10/15/16 18:59 06:59 18:59 Intake Total 372 480 180 Output Total 800 300 Balance 372 -320 -120 Weight 102.6 kg Intake: IV 0 0.9 0 Oral 372 480 180 Output: Urine 800 300 Other: Voiding Method Urinal Urinal # Voids 1 - Exam In general patient is alert and oriented 3 in no apparent distress he reports some improvement in his shortness of breath HEENT head normocephalic and atraumatic Neck is supple no JVD no goiter no lymphadenopathy Chest is clear to auscultation no crackles no wheezing Cardiac exam reveals regular heart sounds no murmurs Abdomen is soft nontender no organomegaly Extremity exam reveals no edema no cyanosis or clubbing - Labs CBC & Chem 7: 10/15/16 06:00 10/15/16 06:00 Labs: Abnormal Lab Results - Last 24 Hours (Table) 10/14/16 10/14/16 10/15/16 Range/Units 16:42 20:49 05:54 RBC (4.30-5.90) m/uL Hgb (13.0-17.5) gm/dL Hct (39.0-53.0) % MCHC (31.0-37.0) g/dL RDW (11.5-15.5) % Neutrophils # (1.3-7.7) k/uL Lymphocytes # (1.0-4.8) k/uL Sodium (137-145) mmol/L Potassium (3.5-5.1) mmol/L Chloride (98-107) mmol/L BUN (9-20) mg/dL Creatinine (0.66-1.25) mg/dL Glucose (74-99) mg/dL POC Glucose (mg/dL) 139 H 111 H 143 H (75-99) mg/dL Total Bilirubin (0.2-1.3) mg/dL Total Protein (6.3-8.2) g/dL Albumin (3.5-5.0) g/dL 10/15/16 10/15/16 10/15/16 Range/Units 06:00 06:00 11:29 RBC 4.20 L (4.30-5.90) m/uL Hgb 10.5 L (13.0-17.5) gm/dL Hct 38.1 L (39.0-53.0) % MCHC 27.6 L (31.0-37.0) g/dL RDW 19.2 H (11.5-15.5) % Neutrophils # 8.0 H (1.3-7.7) k/uL Lymphocytes # 0.8 L (1.0-4.8) k/uL Sodium 132 L (137-145) mmol/L Potassium 5.2 H (3.5-5.1) mmol/L Chloride 97 L (98-107) mmol/L BUN 52 H (9-20) mg/dL Creatinine 1.63 H (0.66-1.25) mg/dL Glucose 127 H (74-99) mg/dL POC Glucose (mg/dL) 145 H (75-99) mg/dL Total Bilirubin 1.7 H (0.2-1.3) mg/dL Total Protein 6.0 L (6.3-8.2) g/dL Albumin 3.2 L (3.5-5.0) g/dL Assessment and Plan Plan: 1. Acute systolic congestive heart failure exacerbation: Echo shows an EF of 20 -25%, moderate mitral regurgitation. Mild pulmonary hypertension. Cardiology was consulted. BNP elevated 13,200 on admission. Patient's Lasix drip discontinued and patient started on IV Lasix 40 every 8 hours yesterday. Await repeat chest x-ray 2. Syncopal episode: Exact etiology unclear. Continue to monitor monitoring. Monitor for cardiac arrhythmias. Echo shows an EF of 20 to 25%. No aortic stenosis 3. Acute kidney injury: Creatinine 1.40 on admission. Creatinine is showing improvement. Continue to monitor 4. Hyponatremia: Sodium 126 on admission. Continue to monitor. Repeat labs in a.m. Sodium level is 132 today 5. Hyperkalemia on admission possibly related to acute kidney injury and potassium supplement. Now corrected. Continue to monitor. 6. Possible pneumonia: Chest x-ray showing a lingular infiltrate. Patient started on Levaquin. Pulmonary following 7. Mildly elevated LFTs on admission. Zocor on hold. Liver numbers have improved. Likely related to fluid congestion in the liver 8. Elevated d-dimer on admission computed tomography scan of the chest is negative for PE Dopplers were negative for DVT 9. History of hyperlipidemia: Zocor on hold due to elevated LFTs 10. History of myocardial infarction and coronary artery disease with previous CABG 11. Essential hypertension: Blood pressures are stable. 12. COPD with no evidence of exacerbation. 13. Nicotine dependence: Patient is working on smoking cessation. He is down to smoking 1 cigarette a day 14. Episodes of bradycardia: We will patient evaluated by cardiology. Heart rate has been as low as 43 and is currently 97. 15. Cardiorenal syndrome with elevated creatinine to 1.63 today Will monitor closely 16. Diabetes mellitus type 2 new diagnosis for this admission. Hemoglobin A1c 7.7. Continue with insulin sliding scale while during hospital station. Patient will require oral hypoglycemic agent at discharge. Consult personal development educator. Change diet to a consistent carbohydrate diet 17. Iron deficiency anemia. Start patient on ferrous sulfate 325 mg twice a day. Hemoglobin 9.6. Iron level 37 18. Mediastinal adenopathy noted on CAT scan. Pulmonary service consulted. Consult physical therapy GI prophylaxis Protonix and DVT prophylaxis subcu heparin
--- NOTE | 2016-10-15 12:55 | P.PN ---
Subjective Principal diagnosis: congestive heart failure this is a pleasant 61-year-old gentleman with history of coronary artery disease and prior bypass surgery, ischemic cardiomyopathy with severe LV dysfunction, prior AICD implantation, hypertension, who presented to the hospital with progressively worsening leg edema and shortness of breath. Patient was initially on IV Lasix drip, this was changed IV push Lasix yesterday. Overall, patient's breathing is significantly improved, lungs are clear today. He continues to have significant peripheral edema. Creatinine today 1.6, potassium 5.2, hemoglobin 10.5. Blood pressure 138/60 with a heart rate in the 90s. Objective - Vital Signs Vital signs: Vital Signs Temp 96.9 F L 10/15/16 08:00 Pulse 84 10/15/16 12:01 Resp 20 10/15/16 08:00 BP 138/64 10/15/16 08:00 Pulse Ox 99 10/15/16 08:16 Intake & Output 10/14/16 10/15/16 10/15/16 18:59 06:59 18:59 Intake Total 372 480 180 Output Total 800 300 Balance 372 -320 -120 Weight 102.6 kg Intake: IV 0 0.9 0 Oral 372 480 180 Output: Urine 800 300 Other: Voiding Method Urinal Urinal # Voids 1 - Exam PHYSICAL EXAMINATION: HEENT: [Head is atraumatic, normocephalic. Pupils equal, round. Neck is supple. There is no elevated jugular venous pressure.] HEART EXAMINATION: heart S1 and S2 systolic murmur is heard. CHEST EXAMINATION:[ Lungs are clear to auscultation and percussion. ABDOMEN: [ Soft, nontender. Bowel sounds are heard. No organomegaly noted]. EXTREMITIES:[ 2+ peripheral pulses with 1+ evidence of peripheral edema and no calf tenderness noted]. NEUROLOGIC [patient is awake, alert and oriented -3.] . - Labs CBC & Chem 7: 10/15/16 06:00 10/15/16 06:00 Labs: Abnormal Lab Results - Last 24 Hours (Table) 10/14/16 10/14/16 10/15/16 Range/Units 16:42 20:49 05:54 RBC (4.30-5.90) m/uL Hgb (13.0-17.5) gm/dL Hct (39.0-53.0) % MCHC (31.0-37.0) g/dL RDW (11.5-15.5) % Neutrophils # (1.3-7.7) k/uL Lymphocytes # (1.0-4.8) k/uL Sodium (137-145) mmol/L Potassium (3.5-5.1) mmol/L Chloride (98-107) mmol/L BUN (9-20) mg/dL Creatinine (0.66-1.25) mg/dL Glucose (74-99) mg/dL POC Glucose (mg/dL) 139 H 111 H 143 H (75-99) mg/dL Total Bilirubin (0.2-1.3) mg/dL Total Protein (6.3-8.2) g/dL Albumin (3.5-5.0) g/dL 10/15/16 10/15/16 10/15/16 Range/Units 06:00 06:00 11:29 RBC 4.20 L (4.30-5.90) m/uL Hgb 10.5 L (13.0-17.5) gm/dL Hct 38.1 L (39.0-53.0) % MCHC 27.6 L (31.0-37.0) g/dL RDW 19.2 H (11.5-15.5) % Neutrophils # 8.0 H (1.3-7.7) k/uL Lymphocytes # 0.8 L (1.0-4.8) k/uL Sodium 132 L (137-145) mmol/L Potassium 5.2 H (3.5-5.1) mmol/L Chloride 97 L (98-107) mmol/L BUN 52 H (9-20) mg/dL Creatinine 1.63 H (0.66-1.25) mg/dL Glucose 127 H (74-99) mg/dL POC Glucose (mg/dL) 145 H (75-99) mg/dL Total Bilirubin 1.7 H (0.2-1.3) mg/dL Total Protein 6.0 L (6.3-8.2) g/dL Albumin 3.2 L (3.5-5.0) g/dL Assessment and Plan (1) Systolic CHF, acute on chronic Status: Acute (2) ARF (acute renal failure) Status: Acute (3) Asthma with exacerbation Status: Acute (4) COPD (chronic obstructive pulmonary disease) Status: Acute (5) Hyperlipidemia Status: Acute (6) Hypertension Status: Acute (7) Hx of CABG Status: Acute (8) Ischemic cardiomyopathy Status: Acute (9) AICD (automatic cardioverter/defibrillator) present Status: Acute Plan: From cardiology's perspective, we'll recommend to continue the patient on current dose of IV Lasix.Check lytes BUN and creatinine in the morning. DNP note has been reviewed, I agree with a documented findings and plan of care. Patient was seen and examined.
[2016-10-15] MEDS: ALPRAZolam 0.25 MG TAB PO PRN (15:54)
[2016-10-15 16:38] LABS: Glucose,Whole Blood 147 mg/dL (75-99)
--- NOTE | 2016-10-15 17:04 | P.PN ---
Subjective This is a very pleasant 61-year-old male patient with cardiomyopathy/CHF, previous AICD, and diabetes mellitus with came into the hospital because of difficulty in breathing, shortness of breath, acute CHF exacerbation knowing that he has an ejection fraction of around 20-25% along with moderate degree of mitral regurgitation. BNP level was significantly elevated at time of admission and order of 15,000. He also had a acute kidney injury with a creatinine of 1.4 that was thought to be related to cardiorenal factors which is improving. The patient was also hyponatremic and this is again another manifestation of CHF. Pneumonia was suspected and the patient was placed also on Levaquin. He is doing well. No cardiac arrhythmias of been noted. No syncope. No chest pain. No other significant events overnight. CAT scan of the chest was noted in the mediastinal lymph nodes are quite small and do not warrant any intervention at this point. The patient is seen again today 10/15/2016 in follow-up. He is awake and alert in no acute distress. He denies any worsening shortness of breath, cough or congestion. He is breathing easier today as compared to yesterday. He is maintaining good O2 saturations in the upper 90s to 100% on room air. He does have intermittent lower extremity edema still. He is currently on Lasix 40 mg IV push every 8 hours. Slight increase in the creatinine currently at 1.37. Objective - Vital Signs Vital signs: Vital Signs Temp 96.7 F L 10/15/16 16:00 Pulse 88 10/15/16 16:30 Resp 18 10/15/16 16:00 BP 115/70 10/15/16 12:30 Pulse Ox 99 10/15/16 16:00 Intake & Output 10/14/16 10/15/16 10/15/16 18:59 06:59 18:59 Intake Total 372 480 980 Output Total 800 300 Balance 372 -320 680 Weight 102.6 kg Intake: IV 0 800 0.9 0 800 Oral 372 480 180 Output: Urine 800 300 Other: Voiding Method Urinal Urinal # Voids 1 - Exam Head exam was generally normal. There was no scleral icterus or corneal arcus. Mucous membranes were moist.Neck was supple and without jugular venous distension, thyromegaly, or carotid bruits. Carotids were easily palpable bilaterally. There was no adenopathy. Lung sounds are diminished bilaterally along with some few crackles at lung bases. Heart sounds are regular, positive S1-S2 and there is no significant murmurs appreciated. The AICD can be felt over the anterior chest.Abdominal exam revealed normal bowel sounds. The abdomen was soft, non-tender, and without masses, organomegaly, or appreciable enlargement of the abdominal aorta.Examination of the extremities revealed easily palpable radial, femoral and pedal pulses. There was no cyanosis, or clubbing. There continues to be 1-2+ lower extremity peripheral edema. Desmond wrap are in place. - Labs CBC & Chem 7: 10/15/16 06:00 10/15/16 06:00 Labs: Abnormal Lab Results - Last 24 Hours (Table) 10/14/16 10/15/16 10/15/16 Range/Units 20:49 05:54 06:00 RBC (4.30-5.90) m/uL Hgb (13.0-17.5) gm/dL Hct (39.0-53.0) % MCHC (31.0-37.0) g/dL RDW (11.5-15.5) % Neutrophils # (1.3-7.7) k/uL Lymphocytes # (1.0-4.8) k/uL Sodium 132 L (137-145) mmol/L Potassium 5.2 H (3.5-5.1) mmol/L Chloride 97 L (98-107) mmol/L BUN 52 H (9-20) mg/dL Creatinine 1.63 H (0.66-1.25) mg/dL Glucose 127 H (74-99) mg/dL POC Glucose (mg/dL) 111 H 143 H (75-99) mg/dL Total Bilirubin 1.7 H (0.2-1.3) mg/dL Total Protein 6.0 L (6.3-8.2) g/dL Albumin 3.2 L (3.5-5.0) g/dL 10/15/16 10/15/16 10/15/16 Range/Units 06:00 11:29 16:33 RBC 4.20 L (4.30-5.90) m/uL Hgb 10.5 L (13.0-17.5) gm/dL Hct 38.1 L (39.0-53.0) % MCHC 27.6 L (31.0-37.0) g/dL RDW 19.2 H (11.5-15.5) % Neutrophils # 8.0 H (1.3-7.7) k/uL Lymphocytes # 0.8 L (1.0-4.8) k/uL Sodium (137-145) mmol/L Potassium (3.5-5.1) mmol/L Chloride (98-107) mmol/L BUN (9-20) mg/dL Creatinine (0.66-1.25) mg/dL Glucose (74-99) mg/dL POC Glucose (mg/dL) 145 H 147 H (75-99) mg/dL Total Bilirubin (0.2-1.3) mg/dL Total Protein (6.3-8.2) g/dL Albumin (3.5-5.0) g/dL Assessment and Plan Plan: Impression: 1 Acute exacerbation of chronic systolic congestive heart failure.. The patient has underlying cardiomyopathy with an ejection fraction of 20-25% and the patient was treated with IV diuretics with subsequent improvement clinically and radiographically. There is some residual small left-sided pleural effusion with adjacent atelectasis 2 shortness of breath improving 3 acute kidney injury slightly worse secondary to diuretics. 4 hyponatremia improved 5 suspected pneumonia and the patient is currently on Levaquin as an empiric antibiotic coverage 6 hyperlipidemia 7 coronary artery disease with previous bypass surgery 8 COPD 9 hypertension 10 nicotine addiction/smoking 11 diabetes mellitus type 2 13 iron deficiency anemia 14 nonspecific mediastinal lymphadenopathy that was no immediate plans for intervention at this point. Plan: The patient was seen and evaluated by Dr. Matias. His labs were reviewed. We 'll continue with his current medications. Diuretics will remain the same per cardiology. We will increase his activity as tolerated. We'll continue to follow and make further recommendations based on his clinical status.
[2016-10-15] MEDS: MONTELUKAST 10 MG TAB PO SCH (20:16)
[2016-10-15] MEDS: OXcarbazepine 150 MG TAB PO SCH (20:17)
[2016-10-15] MEDS: traZODone HCL 50 MG TAB PO SCH (20:20)
[2016-10-15 20:51] LABS: Glucose,Whole Blood 149 mg/dL (75-99)
[2016-10-15] MEDS: LEVOFLOXACIN 250 MG TAB PO SCH (21:38)
[2016-10-16] MEDS: FUROSEMIDE 10 MG/ML 4 ML VIAL IV SCH ×4 (03:59→23:09)
[2016-10-16] MEDS: HYDROcodone/APAP 5-325MG 1 EACH TAB PO PRN ×3 (03:59→23:16)
[2016-10-16] MEDS: ALPRAZolam 0.25 MG TAB PO PRN (04:00)
[2016-10-16 06:28] LABS: Glucose,Whole Blood 82 mg/dL (75-99)
[2016-10-16] MEDS: PANTOPRAZOLE 40 MG TABLET PO SCH (06:34)
[2016-10-16] MEDS: INSULIN LISPRO (humaLOG) 300 UNIT/3 ML VIAL SQ SCH ×4 (06:34→21:56)
[2016-10-16] MEDS: CARVEDILOL 3.125 MG TAB PO SCH ×2 (06:34→17:42)
[2016-10-16 06:41] LABS: Calcium 8.3 mg/dL (8.4-10.2); Magnesium 2.2 mg/dL (1.6-2.3); Potassium 4.3 mmol/L (3.5-5.1); Total Bilirubin 1.8 mg/dL (0.2-1.3); Total Protein 6.1 g/dL (6.3-8.2)
[2016-10-16 07:23] LABS: Anisocytosis Slight; Basophils % (A) 0 %; Eosinophils # (A) 0.2 k/uL (0-0.7); Eosinophils % (A) 2 %; HCT 35.7 % (39.0-53.0); HGB 10.3 gm/dL (13.0-17.5); Hypochromasia Marked; Luc # (Auto) 0.14; Luc % (Auto) 2; Lymphocytes # (A) 0.9 k/uL (1.0-4.8); Lymphocytes % (A) 10 %; MCH 23.9 pg (25.0-35.0); MCHC 28.8 g/dL (31.0-37.0); Mean Platelet Volume 6.7; Microcytosis Slight; Monocytes # (A) 0.5 k/uL (0-1.0); Monocytes % (A) 5 %; Neutrophils # (A) 7.8 k/uL (1.3-7.7); Neutrophils % (A) 82 %; Poikilocytosis Moderate; RBC 4.31 m/uL (4.30-5.90); RDW 19.5 % (11.5-15.5); WBC 9.5 k/uL (3.8-10.6); WBC (Perox) 10.34
[2016-10-16 07:36] LABS: MCV 82.9 fL (80.0-100.0)
[2016-10-16] MEDS: HEPARIN SODIUM,PORCINE 5,000 UNIT/ML 1 ML VIAL SQ SCH ×2 (08:13→20:14)
[2016-10-16] MEDS: CLOPIDOGREL 75 MG TAB PO SCH (08:13)
[2016-10-16] MEDS: FERROUS SULFATE 325 MG TAB PO SCH ×2 (08:13→20:13)
[2016-10-16] MEDS: ASPIRIN 81 MG CHEW PO SCH (08:13)
[2016-10-16] MEDS: LORATADINE 10 MG TAB PO SCH (08:14)
[2016-10-16] MEDS: PARoxetine 20 MG TAB PO SCH (08:14)
[2016-10-16] MEDS: IPRATROPIUM-ALBUTEROL 3 ML NEB INHALATION SCH ×4 (09:03→21:27)
[2016-10-16] MEDS: SYMBICORT 160-4.5 MCG INHALER INHALATION SCH ×2 (09:04→21:27)
[2016-10-16 11:45] LABS: Glucose,Whole Blood 130 mg/dL (75-99)
[2016-10-16 12:00] VITALS: BMI 37.8
--- NOTE | 2016-10-16 12:39 | P.PN ---
Subjective Principal diagnosis: Acute systolic congestive heart failure exacerbation Patient is a 61-year-old male who presented to [facility] with severe shortness of breath and bilateral lower extremity edema, he was started on IV Lasix drip he was admitted to telemetry floor he improved gradually he was switched to IV Lasix 40 mg every 8 hours. Patient has known history of ischemic cardiomyopathy with the severely impaired left ventricular function with ejection fraction of 20-25% he has previous history of AICD placement. Objective - Vital Signs Vital signs: Vital Signs Temp 96.8 F L 10/16/16 11:41 Pulse 80 10/16/16 11:47 Resp 16 10/16/16 11:41 BP 97/55 10/16/16 11:41 Pulse Ox 98 10/16/16 11:41 Intake & Output 10/15/16 10/16/16 10/16/16 18:59 06:59 18:59 Intake Total 980 120 Output Total 300 800 250 Balance 680 -800 -130 Weight 103.1 kg 103.1 kg Intake: IV 800 0.9 800 Oral 180 120 Output: Urine 300 800 250 Other: Voiding Method Urinal # Voids 1 - Exam In general patient is alert and oriented 3 in no apparent distress he reports some improvement in his shortness of breath HEENT head normocephalic and atraumatic Neck is supple no JVD no goiter no lymphadenopathy Chest is clear to auscultation no crackles no wheezing Cardiac exam reveals regular heart sounds no murmurs Abdomen is soft nontender no organomegaly Extremity exam reveals no edema no cyanosis or clubbing - Labs CBC & Chem 7: 10/16/16 05:26 10/16/16 05:26 Labs: Abnormal Lab Results - Last 24 Hours (Table) 10/15/16 10/15/16 10/16/16 Range/Units 16:33 20:50 05:26 Hgb (13.0-17.5) gm/dL Hct (39.0-53.0) % MCH (25.0-35.0) pg MCHC (31.0-37.0) g/dL RDW (11.5-15.5) % Neutrophils # (1.3-7.7) k/uL Lymphocytes # (1.0-4.8) k/uL Sodium 132 L (137-145) mmol/L Chloride 96 L (98-107) mmol/L BUN 53 H (9-20) mg/dL Creatinine 1.55 H (0.66-1.25) mg/dL POC Glucose (mg/dL) 147 H 149 H (75-99) mg/dL Calcium 8.3 L (8.4-10.2) mg/dL Total Bilirubin 1.8 H (0.2-1.3) mg/dL Total Protein 6.1 L (6.3-8.2) g/dL Albumin 3.2 L (3.5-5.0) g/dL 10/16/16 10/16/16 Range/Units 05:26 11:29 Hgb 10.3 L (13.0-17.5) gm/dL Hct 35.7 L (39.0-53.0) % MCH 23.9 L (25.0-35.0) pg MCHC 28.8 L (31.0-37.0) g/dL RDW 19.5 H (11.5-15.5) % Neutrophils # 7.8 H (1.3-7.7) k/uL Lymphocytes # 0.9 L (1.0-4.8) k/uL Sodium (137-145) mmol/L Chloride (98-107) mmol/L BUN (9-20) mg/dL Creatinine (0.66-1.25) mg/dL POC Glucose (mg/dL) 130 H (75-99) mg/dL Calcium (8.4-10.2) mg/dL Total Bilirubin (0.2-1.3) mg/dL Total Protein (6.3-8.2) g/dL Albumin (3.5-5.0) g/dL Assessment and Plan Plan: 1. Acute systolic congestive heart failure exacerbation: Echo shows an EF of 20 -25%, moderate mitral regurgitation. Patient has been maintained on IV lasix, he is improving he will be switched to oral lasix today. If stable he will be discharged home tomorrow. 2. Syncopal episode: Exact etiology unclear. Continue to monitor monitoring. Monitor for cardiac arrhythmias. Echo shows an EF of 20 to 25%. No aortic stenosis 3. Acute kidney injury: Creatinine 1.40 on admission. Creatinine is showing improvement. Continue to monitor 4. Hyponatremia: Sodium 126 on admission. Continue to monitor. Repeat labs in a.m. Sodium level is 132 today 5. Hyperkalemia on admission possibly related to acute kidney injury and potassium supplement. Now corrected. Continue to monitor. 6. Possible pneumonia: Chest x-ray showing a lingular infiltrate. Patient started on Levaquin. Pulmonary following 7. Mildly elevated LFTs on admission. Zocor on hold. Liver numbers have improved. Likely related to fluid congestion in the liver 8. Elevated d-dimer on admission computed tomography scan of the chest is negative for PE Dopplers were negative for DVT 9. History of hyperlipidemia: Zocor on hold due to elevated LFTs 10. History of myocardial infarction and coronary artery disease with previous CABG 11. Essential hypertension: Blood pressures are stable. 12. COPD with no evidence of exacerbation. 13. Nicotine dependence: Patient is working on smoking cessation. He is down to smoking 1 cigarette a day 14. Episodes of bradycardia: We will patient evaluated by cardiology. Heart rate has been as low as 43 and is currently 97. 15. Cardiorenal syndrome with elevated creatinine to 1.63 today Will monitor closely 16. Diabetes mellitus type 2 new diagnosis for this admission. Hemoglobin A1c 7.7. Continue with insulin sliding scale while during hospital station. Patient will require oral hypoglycemic agent at discharge. Consult community nutrition educator. Change diet to a consistent carbohydrate diet 17. Iron deficiency anemia. Start patient on ferrous sulfate 325 mg twice a day. Hemoglobin 9.6. Iron level 37 18. Mediastinal adenopathy noted on CAT scan. Pulmonary service consulted. Consult physical therapy GI prophylaxis Protonix and DVT prophylaxis subcu heparin
--- NOTE | 2016-10-16 12:56 | P.PN ---
Subjective Principal diagnosis: congestive heart failure this is a pleasant 61-year-old gentleman with history of coronary artery disease and prior bypass surgery, ischemic cardiomyopathy with severe LV dysfunction, prior AICD implantation, hypertension, who presented to the hospital with progressively worsening leg edema and shortness of breath. Patient was initially on IV Lasix drip, this was changed IV push Lasix. Overall , patient's breathing is significantly improved, lungs are clear today. He continues to have significant peripheral edema. Creatinine today 1.5, potassium 4.3, hemoglobin 10.3. Blood pressure 95/55 with a heart rate in the 80s. Objective - Vital Signs Vital signs: Vital Signs Temp 96.8 F L 10/16/16 11:41 Pulse 80 10/16/16 11:47 Resp 16 10/16/16 11:41 BP 97/55 10/16/16 11:41 Pulse Ox 98 10/16/16 11:41 Intake & Output 10/15/16 10/16/16 10/16/16 18:59 06:59 18:59 Intake Total 980 120 Output Total 300 800 250 Balance 680 -800 -130 Weight 103.1 kg 103.1 kg Intake: IV 800 0.9 800 Oral 180 120 Output: Urine 300 800 250 Other: Voiding Method Urinal # Voids 1 - Exam PHYSICAL EXAMINATION: HEENT: [Head is atraumatic, normocephalic. Pupils equal, round. Neck is supple. There is no elevated jugular venous pressure.] HEART EXAMINATION: heart S1 and S2 systolic murmur is heard. CHEST EXAMINATION:[ Lungs are clear to auscultation and percussion. ABDOMEN: [ Soft, nontender. Bowel sounds are heard. No organomegaly noted]. EXTREMITIES:[ 2+ peripheral pulses with 1+ evidence of peripheral edema and no calf tenderness noted]. NEUROLOGIC [patient is awake, alert and oriented -3.] . - Labs CBC & Chem 7: 10/16/16 05:26 10/16/16 05:26 Labs: Abnormal Lab Results - Last 24 Hours (Table) 10/15/16 10/15/16 10/16/16 Range/Units 16:33 20:50 05:26 Hgb (13.0-17.5) gm/dL Hct (39.0-53.0) % MCH (25.0-35.0) pg MCHC (31.0-37.0) g/dL RDW (11.5-15.5) % Neutrophils # (1.3-7.7) k/uL Lymphocytes # (1.0-4.8) k/uL Sodium 132 L (137-145) mmol/L Chloride 96 L (98-107) mmol/L BUN 53 H (9-20) mg/dL Creatinine 1.55 H (0.66-1.25) mg/dL POC Glucose (mg/dL) 147 H 149 H (75-99) mg/dL Calcium 8.3 L (8.4-10.2) mg/dL Total Bilirubin 1.8 H (0.2-1.3) mg/dL Total Protein 6.1 L (6.3-8.2) g/dL Albumin 3.2 L (3.5-5.0) g/dL 10/16/16 10/16/16 Range/Units 05:26 11:29 Hgb 10.3 L (13.0-17.5) gm/dL Hct 35.7 L (39.0-53.0) % MCH 23.9 L (25.0-35.0) pg MCHC 28.8 L (31.0-37.0) g/dL RDW 19.5 H (11.5-15.5) % Neutrophils # 7.8 H (1.3-7.7) k/uL Lymphocytes # 0.9 L (1.0-4.8) k/uL Sodium (137-145) mmol/L Chloride (98-107) mmol/L BUN (9-20) mg/dL Creatinine (0.66-1.25) mg/dL POC Glucose (mg/dL) 130 H (75-99) mg/dL Calcium (8.4-10.2) mg/dL Total Bilirubin (0.2-1.3) mg/dL Total Protein (6.3-8.2) g/dL Albumin (3.5-5.0) g/dL Assessment and Plan (1) Systolic CHF, acute on chronic Status: Acute (2) ARF (acute renal failure) Status: Acute (3) Asthma with exacerbation Status: Acute (4) COPD (chronic obstructive pulmonary disease) Status: Acute (5) Hyperlipidemia Status: Acute (6) Hypertension Status: Acute (7) Hx of CABG Status: Acute (8) Ischemic cardiomyopathy Status: Acute (9) AICD (automatic cardioverter/defibrillator) present Status: Acute Plan: From cardiology's perspective, we will discontinue the IV Lasix start the patient on oral diuretics plan for discharge home in 24 hours if stable. DNP note has been reviewed, I agree with a documented findings and plan of care. Patient was seen and examined.
[2016-10-16] MEDS: NICOTINE 21MG/24HR PATCH TRANSDERM SCH (14:13)
[2016-10-16] MEDS: LISINOPRIL 5 MG TAB PO SCH (14:15)
--- NOTE | 2016-10-16 15:58 | P.PN ---
Subjective This is a very pleasant 61-year-old male patient with cardiomyopathy/CHF, previous AICD, and diabetes mellitus with came into the hospital because of difficulty in breathing, shortness of breath, acute CHF exacerbation knowing that he has an ejection fraction of around 20-25% along with moderate degree of mitral regurgitation. BNP level was significantly elevated at time of admission and order of 15,000. He also had a acute kidney injury with a creatinine of 1.4 that was thought to be related to cardiorenal factors which is improving. The patient was also hyponatremic and this is again another manifestation of CHF. Pneumonia was suspected and the patient was placed also on Levaquin. He is doing well. No cardiac arrhythmias of been noted. No syncope. No chest pain. No other significant events overnight. CAT scan of the chest was noted in the mediastinal lymph nodes are quite small and do not warrant any intervention at this point. The patient is seen again today 10/15/2016 in follow-up. He is awake and alert in no acute distress. He denies any worsening shortness of breath, cough or congestion. He is breathing easier today as compared to yesterday. He is maintaining good O2 saturations in the upper 90s to 100% on room air. He does have intermittent lower extremity edema still. He is currently on Lasix 40 mg IV push every 8 hours. Slight increase in the creatinine currently at 1.37. On 10/16/2016 the patient is being seen in follow-up. The patient is still being diuresis with IV Lasix. There is considerable improvement in lower extremity edema and the skin is no longer weeping at this point. Noticed were distress. No cough sputum production. The patient is becoming progressively more prerenal secondary to diuresis and we have decided to diuresis patient for another 24 hours. No other significant events overnight. Objective - Vital Signs Vital signs: Vital Signs Temp 96.8 F L 10/16/16 15:53 Pulse 82 10/16/16 15:53 Resp 16 10/16/16 15:53 BP 90/56 10/16/16 15:53 Pulse Ox 93 L 10/16/16 15:53 Intake & Output 10/15/16 10/16/16 10/16/16 18:59 06:59 18:59 Intake Total 980 120 Output Total 300 800 250 Balance 680 -800 -130 Weight 103.1 kg 103.1 kg Intake: IV 800 0.9 800 Oral 180 120 Output: Urine 300 800 250 Other: Voiding Method Urinal # Voids 1 - Exam Head exam was generally normal. There was no scleral icterus or corneal arcus. Mucous membranes were moist.Neck was supple and without jugular venous distension, thyromegaly, or carotid bruits. Carotids were easily palpable bilaterally. There was no adenopathy. Lung sounds are diminished bilaterally along with some few crackles at lung bases. Heart sounds are regular, positive S1-S2 and there is no significant murmurs appreciated. The AICD can be felt over the anterior chest.Abdominal exam revealed normal bowel sounds. The abdomen was soft, non-tender, and without masses, organomegaly, or appreciable enlargement of the abdominal aorta.Examination of the extremities revealed easily palpable radial, femoral and pedal pulses. There was no cyanosis, clubbing and there is improvement in the lower extremities edema compared to yesterday and there is still some plus 1 residual edema - Labs CBC & Chem 7: 10/16/16 05:26 10/16/16 05:26 Labs: Abnormal Lab Results - Last 24 Hours (Table) 10/15/16 10/15/16 10/16/16 Range/Units 16:33 20:50 05:26 Hgb (13.0-17.5) gm/dL Hct (39.0-53.0) % MCH (25.0-35.0) pg MCHC (31.0-37.0) g/dL RDW (11.5-15.5) % Neutrophils # (1.3-7.7) k/uL Lymphocytes # (1.0-4.8) k/uL Sodium 132 L (137-145) mmol/L Chloride 96 L (98-107) mmol/L BUN 53 H (9-20) mg/dL Creatinine 1.55 H (0.66-1.25) mg/dL POC Glucose (mg/dL) 147 H 149 H (75-99) mg/dL Calcium 8.3 L (8.4-10.2) mg/dL Total Bilirubin 1.8 H (0.2-1.3) mg/dL Total Protein 6.1 L (6.3-8.2) g/dL Albumin 3.2 L (3.5-5.0) g/dL 10/16/16 10/16/16 Range/Units 05:26 11:29 Hgb 10.3 L (13.0-17.5) gm/dL Hct 35.7 L (39.0-53.0) % MCH 23.9 L (25.0-35.0) pg MCHC 28.8 L (31.0-37.0) g/dL RDW 19.5 H (11.5-15.5) % Neutrophils # 7.8 H (1.3-7.7) k/uL Lymphocytes # 0.9 L (1.0-4.8) k/uL Sodium (137-145) mmol/L Chloride (98-107) mmol/L BUN (9-20) mg/dL Creatinine (0.66-1.25) mg/dL POC Glucose (mg/dL) 130 H (75-99) mg/dL Calcium (8.4-10.2) mg/dL Total Bilirubin (0.2-1.3) mg/dL Total Protein (6.3-8.2) g/dL Albumin (3.5-5.0) g/dL Assessment and Plan Plan: Assessment 1 acute CHF exacerbation. The patient has underlying cardiac myopathy with an ejection fraction of 20-25% and the patient was treated with IV diuretics with subsequent improvement clinically and radiographically. There is some residual small left-sided pleural effusion with adjacent atelectasis and there is marked improvement in the lower extremity edema at the patient is being diuresis. 2 shortness of breath improving 3 acute kidney injury, essentially a prerenal azotemia secondary to diuresis 4 hyponatremia, improved 5 suspected pneumonia and the patient is currently on Levaquin as an empiric antibiotic coverage 6 hyperlipidemia 7 coronary artery disease with previous bypass surgery 8 COPD 9 hypertension 10 nicotine addiction/smoking 11 diabetes mellitus type 2 13 iron deficiency anemia 14 nonspecific mediastinal lymphadenopathy that was no immediate attention or intervention at this point. Plan Continue IV Lasix for another 24 hours. Monitor renal function. Monitor electrolytes. Ablate the patient the hallway. Increase PT as tolerated. Continue the Levaquin. Discharge planning is in progress.
[2016-10-16 17:38] LABS: Glucose,Whole Blood 136 mg/dL (75-99)
[2016-10-16] MEDS: MONTELUKAST 10 MG TAB PO SCH (20:13)
[2016-10-16] MEDS: OXcarbazepine 150 MG TAB PO SCH (20:13)
[2016-10-16] MEDS: LEVOFLOXACIN 250 MG TAB PO SCH (20:13)
[2016-10-16] MEDS: traZODone HCL 50 MG TAB PO SCH (20:13)
[2016-10-16 21:15] LABS: Glucose,Whole Blood 199 mg/dL (75-99)
[2016-10-17 06:09] LABS: Glucose,Whole Blood 137 mg/dL (75-99)
[2016-10-17] MEDS: PANTOPRAZOLE 40 MG TABLET PO SCH (06:14)
[2016-10-17] MEDS: INSULIN LISPRO (humaLOG) 300 UNIT/3 ML VIAL SQ SCH ×2 (06:14→11:50)
[2016-10-17] MEDS: CARVEDILOL 3.125 MG TAB PO SCH (06:14)
[2016-10-17 06:58] LABS: ALT 50 U/L (21-72); AST 38 U/L (17-59); Alkaline Phosphatase 96 U/L (38-126); Anion Gap 13 mmol/L; Blood Urea Nitrogen 51 mg/dL (9-20); Calcium 8.1 mg/dL (8.4-10.2); Carbon Dioxide 21 mmol/L (22-30); Chloride 99 mmol/L (98-107); Glucose 100 mg/dL (74-99); Magnesium 2.1 mg/dL (1.6-2.3); Non-African American GFR(MDRD) 58 (>60 ml/min/1.73 sqM); Potassium 4.1 mmol/L (3.5-5.1); Sodium 133 mmol/L (137-145); Total Bilirubin 1.6 mg/dL (0.2-1.3); Total Protein 5.6 g/dL (6.3-8.2)
[2016-10-17 07:10] LABS: Anisocytosis Slight; Basophils # (A) 0.1 k/uL (0-0.2); Basophils % (A) 1 %; CH 23.5; CHCM 27.3; Eosinophils # (A) 0.2 k/uL (0-0.7); Eosinophils % (A) 3 %; HCT 36.4 % (39.0-53.0); HDW 3.79; HGB 10.3 gm/dL (13.0-17.5); Hypochromasia Marked; Luc # (Auto) 0.15; Luc % (Auto) 2; Lymphocytes # (A) 0.7 k/uL (1.0-4.8); Lymphocytes % (A) 10 %; MCH 24.5 pg (25.0-35.0); MCHC 28.3 g/dL (31.0-37.0); MCV 86.6 fL (80.0-100.0); Monocytes # (A) 0.4 k/uL (0-1.0); Monocytes % (A) 6 %; Neutrophils # (A) 5.9 k/uL (1.3-7.7); Neutrophils % (A) 80 %; Poikilocytosis Slight; RDW 19.8 % (11.5-15.5); WBC 7.4 k/uL (3.8-10.6); WBC (Perox) 7.62
[2016-10-17] MEDS: FUROSEMIDE 10 MG/ML 4 ML VIAL IV SCH (07:46)
[2016-10-17] MEDS: HEPARIN SODIUM,PORCINE 5,000 UNIT/ML 1 ML VIAL SQ SCH (07:46)
[2016-10-17] MEDS: FERROUS SULFATE 325 MG TAB PO SCH (07:47)
[2016-10-17] MEDS: ERGOCALCIFEROL 50,000 UNIT CAP PO SCH (07:47)
[2016-10-17] MEDS: PARoxetine 20 MG TAB PO SCH (07:47)
[2016-10-17] MEDS: CLOPIDOGREL 75 MG TAB PO SCH (07:47)
[2016-10-17] MEDS: ASPIRIN 81 MG CHEW PO SCH (07:47)
[2016-10-17] MEDS: LORATADINE 10 MG TAB PO SCH (07:47)
[2016-10-17] MEDS: LISINOPRIL 5 MG TAB PO SCH (07:48)
[2016-10-17] MEDS: NICOTINE 21MG/24HR PATCH TRANSDERM SCH (07:48)
[2016-10-17] MEDS: HYDROcodone/APAP 5-325MG 1 EACH TAB PO PRN ×2 (07:52→14:13)
[2016-10-17] MEDS: SYMBICORT 160-4.5 MCG INHALER INHALATION SCH (08:06)
[2016-10-17] MEDS: IPRATROPIUM-ALBUTEROL 3 ML NEB INHALATION SCH ×3 (08:06→16:35)
[2016-10-17 08:49] VITALS: RESP 16
[2016-10-17] MEDS: ALPRAZolam 0.25 MG TAB PO PRN (11:49)
[2016-10-17 11:54] LABS: Glucose,Whole Blood 179 mg/dL (75-99)
[2016-10-17 12:38] VITALS: BP 142/56; PULSE 88; TEMP 97.1
--- NOTE | 2016-10-17 13:02 | P.PN ---
Subjective Principal diagnosis: congestive heart failure this is a pleasant 61-year-old gentleman with history of coronary artery disease and prior bypass surgery, ischemic cardiomyopathy with severe LV dysfunction, prior AICD implantation, hypertension, who presented to the hospital with progressively worsening leg edema and shortness of breath. Patient was initially on IV Lasix drip, this was changed IV push Lasix. Overall , patient's breathing is significantly improved, lungs are clear today. Peripheral edema is improving. Weight down 2 kg. Hemoglobin 10.3, BUN 51, creatinine 1.2. We will discontinue the IV Lasix today and put the patient on Lasix 40 mg one tablet by mouth twice a day. He may be able to be discharged from cardiology's perspective, we will make him a follow-up appointment in the office with Dr. Carmona post discharge. Objective - Vital Signs Vital signs: Vital Signs Temp 97.1 F L 10/17/16 12:00 Pulse 88 10/17/16 12:00 Resp 16 10/17/16 12:00 BP 142/56 10/17/16 12:00 Pulse Ox 94 L 10/17/16 12:00 Intake & Output 10/16/16 10/17/16 10/17/16 18:59 06:59 18:59 Intake Total 320 600 200 Output Total 550 950 500 Balance -230 -350 -300 Weight 103.1 kg 101.2 kg Intake: Oral 320 600 200 Output: Urine 550 950 500 Other: Voiding Method Toilet Toilet Urinal Urinal # Voids 1 - Exam PHYSICAL EXAMINATION: HEENT: [Head is atraumatic, normocephalic. Pupils equal, round. Neck is supple. There is no elevated jugular venous pressure.] HEART EXAMINATION: heart S1 and S2 systolic murmur is heard. CHEST EXAMINATION:[ Lungs are clear to auscultation and percussion. ABDOMEN: [ Soft, nontender. Bowel sounds are heard. No organomegaly noted]. EXTREMITIES:[ 2+ peripheral pulses with trace evidence of peripheral edema and no calf tenderness noted]. NEUROLOGIC [patient is awake, alert and oriented -3.] . - Labs CBC & Chem 7: 10/17/16 06:11 10/17/16 06:11 Labs: Abnormal Lab Results - Last 24 Hours (Table) 10/16/16 10/16/16 10/17/16 Range/Units 17:36 21:13 06:05 RBC (4.30-5.90) m/uL Hgb (13.0-17.5) gm/dL Hct (39.0-53.0) % MCH (25.0-35.0) pg MCHC (31.0-37.0) g/dL RDW (11.5-15.5) % Plt Count (150-450) k/uL Lymphocytes # (1.0-4.8) k/uL Sodium (137-145) mmol/L Carbon Dioxide (22-30) mmol/L BUN (9-20) mg/dL Creatinine (0.66-1.25) mg/dL Glucose (74-99) mg/dL POC Glucose (mg/dL) 136 H 199 H 137 H (75-99) mg/dL Calcium (8.4-10.2) mg/dL Total Bilirubin (0.2-1.3) mg/dL Total Protein (6.3-8.2) g/dL Albumin (3.5-5.0) g/dL 10/17/16 10/17/16 10/17/16 Range/Units 06:11 06:11 11:46 RBC 4.20 L (4.30-5.90) m/uL Hgb 10.3 L (13.0-17.5) gm/dL Hct 36.4 L (39.0-53.0) % MCH 24.5 L (25.0-35.0) pg MCHC 28.3 L (31.0-37.0) g/dL RDW 19.8 H (11.5-15.5) % Plt Count 126 L (150-450) k/uL Lymphocytes # 0.7 L (1.0-4.8) k/uL Sodium 133 L (137-145) mmol/L Carbon Dioxide 21 L (22-30) mmol/L BUN 51 H (9-20) mg/dL Creatinine 1.26 H (0.66-1.25) mg/dL Glucose 100 H (74-99) mg/dL POC Glucose (mg/dL) 179 H (75-99) mg/dL Calcium 8.1 L (8.4-10.2) mg/dL Total Bilirubin 1.6 H (0.2-1.3) mg/dL Total Protein 5.6 L (6.3-8.2) g/dL Albumin 2.8 L (3.5-5.0) g/dL Assessment and Plan (1) Systolic CHF, acute on chronic Status: Acute (2) ARF (acute renal failure) Status: Acute (3) Asthma with exacerbation Status: Acute (4) COPD (chronic obstructive pulmonary disease) Status: Acute (5) Hyperlipidemia Status: Acute (6) Hypertension Status: Acute (7) Hx of CABG Status: Acute (8) Ischemic cardiomyopathy Status: Acute (9) AICD (automatic cardioverter/defibrillator) present Status: Acute Plan: From cardiology's perspective, the Lasix will be discontinued, patient will be initiated on Lasix 40 mg by mouth twice a day. He may be able to be discharged home today from cardiology standpoint, a follow-up appointment will be made in the office with Dr. Carmona post discharge. DNP note has been reviewed, I agree with a documented findings and plan of care. Patient was seen and examined.
--- NOTE | 2016-10-17 14:17 | P.DS ---
Providers Date of admission: 10/09/16 19:04 Expected date of discharge: 10/17/16 Attending physician: Mylene Babcock Consults: 10/10/16 13:15 Consult Physician Routine Consulting Provider: David Tee Consult Reason/Comments: CHF exacerbation Do you want consulting provider notified?: Yes 10/10/16 14:38 Consult Physician Routine Consulting Provider: Juan Waters Consult Reason/Comments: mediastinal adenopathy Do you want consulting provider notified?: Yes Primary care physician: Maddie Anne Hospital Course: Discharge diagnosis 1. Acute systolic congestive heart failure exacerbation: Echo shows an EF of 20 -25%, moderate mitral regurgitation. Patient has been maintained on IV lasix, he is improving he will be switched to oral lasix today. If stable he will be discharged home tomorrow. 2. Syncopal episode: Exact etiology unclear. Now resolved. Possibly secondary to his acute CHF exacerbation, pneumonia or acute kidney injury. Also could be related to his new diagnosis of diabetes. Continue to monitor monitoring. Monitor for cardiac arrhythmias. Echo shows an EF of 20 to 25%. No aortic stenosis 3. Acute kidney injury: Creatinine 1.40 on admission. Creatinine is showing improvement. Continue to monitor 4. Hyponatremia: Sodium 126 on admission. Sodium is now 133 5. Hyperkalemia on admission possibly related to acute kidney injury and potassium supplement. Now corrected. Continue to monitor. 6. Possible pneumonia: Chest x-ray showing a lingular infiltrate. Patient started on Levaquin. Pulmonary following 7. Mildly elevated LFTs on admission. Zocor on hold. Liver numbers have improved. Likely related to fluid congestion in the liver 8. Elevated d-dimer on admission computed tomography scan of the chest is negative for PE Dopplers were negative for DVT 9. History of hyperlipidemia: 10. History of myocardial infarction and coronary artery disease with previous CABG 11. Essential hypertension: Blood pressures are stable. 12. COPD with no evidence of exacerbation. 13. Nicotine dependence: Patient is working on smoking cessation. He is down to smoking 1 cigarette a day 14. Episodes of bradycardia: We will patient evaluated by cardiology. Heart rate has been as low as 43 and is currently 97. 15. Cardiorenal syndrome with elevated creatinine to 1.63 today Will monitor closely 16. Diabetes mellitus type 2 new diagnosis for this admission. Hemoglobin A1c 7.7. Continue with insulin sliding scale while during hospital station. Patient will require oral hypoglycemic agent at discharge. Consult peer educator. Change diet to a consistent carbohydrate diet 17. Iron deficiency anemia. Start patient on ferrous sulfate 325 mg twice a day. Hemoglobin 9.6. Iron level 37 18. Mediastinal adenopathy noted on CAT scan. Pulmonary service consulted. 19. Ischemic cardiomyopathy with history of AICD placement Hospital course This is a 61-year-old male who presented with shortness of breath bilateral lower extremity edema and abdominal swelling. He is found to have evidence of acute CHF exacerbation. Initially started on IV Lasix. He was then switched over to an IV Lasix drip. Cardiology was consulted echocardiogram that showed an EF of 20-25%. Patient had a computed tomography scan of the chest which was negative for PE. Dopplers also negative for DVT. Pulmonary is consulted due to mediastinal adenopathy noted on CAT scan. They evaluate patient felt that there is no immediate need for any intervention. I will outpatient follow-up with pulmonary service for further evaluation in the outpatient setting. And possibly repeat imaging. Cardiology will also be following up with patient. They have added Coreg and lisinopril at 2.5 mg daily. Lasix increased to 40 mg by mouth twice a day. Patient also had evidence of iron deficiency anemia was started on ferrous sulfate 325 mg twice a day. Hemoglobin at discharge is 10.3. Patient also had evidence of a cardiorenal syndrome with acute kidney injury on admission. Creatinine is down to 1.26. Would recommend having repeat BMP in about a week. Patient also was found have a new diagnosis of diabetes mellitus. He had hemoglobin A1c of 7.7. Due to his renal status. Patient on glipizide 5 mg daily with his evening meal which is his largest meal. Recommend that he follows up with his PCP for further monitoring of the blood sugars. Patient also is interested in quitting smoking he'll be given a nicotine patch. Is also given a small prescription of Xanax for generalized anxiety disorder. And he has 1 more day of Levaquin to complete treatment for possible pneumonia. Patient's symptoms are showing improvement. He was cleared by cardiology for discharge. We'll have him follow up with his PCP, cardiology and pulmonary service in the outpatient setting. Would recommend checking a CBC and BMP in 1 week. Please refer to chart for any further details. Also note that patient did have elevated liver enzymes during this admission likely related to liver congestion from fluid overload. Liver enzymes have normalized. And Zocor was also held during this admission. We'll have patient restart the Zocor. And recommend following up with LFTs in outpatient setting. Patient Condition at Discharge: Stable Plan - Discharge Summary New Discharge Prescriptions: ALPRAZolam [Xanax] 0.25 mg PO BID PRN #10 tab PRN Reason: Anxiety Aspirin 81 mg PO DAILY #30 chew Carvedilol [Coreg] 3.125 mg PO BID-W/MEALS #60 tab Ferrous Sulfate [Iron (65 MG Elemental)] 325 mg PO BID #60 tab Furosemide [Lasix] 40 mg PO BID@0900,1600 #60 tab Levofloxacin [Levaquin] 250 mg PO Q24H #1 tab Lisinopril [Zestril] 2.5 mg PO DAILY #30 tab Nicotine 21Mg/24Hr Patch [Habitrol] 1 patch TRANSDERM DAILY #30 patch Potassium Chloride ER [K-Dur 20] 20 meq PO DAILY #30 tab glipiZIDE [Glucotrol] 5 mg PO DAILY #30 tab Discharge Medication List Albuterol Sulfate [Ventolin HFA] 2 puff INHALATION RT-QID PRN 01/23/16 [History] Loratadine 10 mg PO DAILY 01/23/16 [History] PARoxetine HCL 40 mg PO DAILY 01/23/16 [History] Albuterol Nebulized [Ventolin Nebulized] 2.5 mg INHALATION RT-TID PRN 10/09/16 [ History] Allopurinol [Zyloprim] 300 mg PO DAILY 10/09/16 [History] Clopidogrel [Plavix] 75 mg PO DAILY 10/09/16 [History] Ergocalciferol (Vitamin D2) [Vitamin D2] 50,000 unit PO Q7D 10/09/16 [History] Fluticasone/Vilanterol [Breo Ellipta 200-25 Mcg INH] 1 puff INHALATION RT-DAILY 10/09/16 [History] Montelukast [Singulair] 10 mg PO HS 10/09/16 [History] OXcarbazepine [Trileptal] 150 mg PO HS 10/09/16 [History] Omeprazole [PriLOSEC] 20 mg PO DAILY 10/09/16 [History] Simvastatin [Zocor] 40 mg PO HS 10/09/16 [History] traMADol HCL [Ultram] 50 mg PO BID 10/09/16 [History] traZODone HCL 50 mg PO HS 10/09/16 [History] ALPRAZolam [Xanax] 0.25 mg PO BID PRN #10 tab 10/17/16 [Rx] Aspirin 81 mg PO DAILY #30 chew 10/17/16 [Rx] Carvedilol [Coreg] 3.125 mg PO BID-W/MEALS #60 tab 10/17/16 [Rx] Ferrous Sulfate [Iron (65 MG Elemental)] 325 mg PO BID #60 tab 10/17/16 [Rx] Furosemide [Lasix] 40 mg PO BID@0900,1600 #60 tab 10/17/16 [Rx] Levofloxacin [Levaquin] 250 mg PO Q24H #1 tab 10/17/16 [Rx] Lisinopril [Zestril] 2.5 mg PO DAILY #30 tab 10/17/16 [Rx] Nicotine 21Mg/24Hr Patch [Habitrol] 1 patch TRANSDERM DAILY #30 patch 10/17/16 [ Rx] Potassium Chloride ER [K-Dur 20] 20 meq PO DAILY #30 tab 10/17/16 [Rx] glipiZIDE [Glucotrol] 5 mg PO DAILY #30 tab 10/17/16 [Rx] Follow up Appointment(s)/Referral(s): [facility], [NON-STAFF] - Maddie Anne DO [Primary Care Provider] - 1 Week Mario Carmona MD [STAFF PHYSICIAN] - 1 Week Activity/Diet/Wound Care/Special Instructions: Diet: diabetic Activity: as tolerated check CBC, CMP in 1 week Discharge Disposition: HOME SELF-CARE
[2016-10-17] MEDS ORDERED: FUROSEMIDE 40 MG TAB PO SCH (16:00)
--- NOTE | 2016-10-17 16:19 | P.PN ---
Subjective This is a very pleasant 61-year-old male patient with cardiomyopathy/CHF, previous AICD, and diabetes mellitus with came into the hospital because of difficulty in breathing, shortness of breath, acute CHF exacerbation knowing that he has an ejection fraction of around 20-25% along with moderate degree of mitral regurgitation. BNP level was significantly elevated at time of admission and order of 15,000. He also had a acute kidney injury with a creatinine of 1.4 that was thought to be related to cardiorenal factors which is improving. The patient was also hyponatremic and this is again another manifestation of CHF. Pneumonia was suspected and the patient was placed also on Levaquin. He is doing well. No cardiac arrhythmias of been noted. No syncope. No chest pain. No other significant events overnight. CAT scan of the chest was noted in the mediastinal lymph nodes are quite small and do not warrant any intervention at this point. The patient is seen again today 10/15/2016 in follow-up. He is awake and alert in no acute distress. He denies any worsening shortness of breath, cough or congestion. He is breathing easier today as compared to yesterday. He is maintaining good O2 saturations in the upper 90s to 100% on room air. He does have intermittent lower extremity edema still. He is currently on Lasix 40 mg IV push every 8 hours. Slight increase in the creatinine currently at 1.37. On 10/16/2016 the patient is being seen in follow-up. The patient is still being diuresis with IV Lasix. There is considerable improvement in lower extremity edema and the skin is no longer weeping at this point. Noticed were distress. No cough sputum production. The patient is becoming progressively more prerenal secondary to diuresis and we have decided to diuresis patient for another 24 hours. No other significant events overnight. On 10/14/2016 the patient is being seen in follow-up. He he was diuresed with IV Lasix for another 24 hours and currently her be switched to oral Lasix. No respiratory distress. Lower extremity edema is improving. No other significant events overnight. No major disturbances in his electrolytes. Objective - Vital Signs Vital signs: Vital Signs Temp 97.1 F L 10/17/16 12:00 Pulse 88 10/17/16 12:00 Resp 16 10/17/16 12:00 BP 142/56 10/17/16 12:00 Pulse Ox 94 L 10/17/16 12:00 Intake & Output 10/16/16 10/17/16 10/17/16 18:59 06:59 18:59 Intake Total 320 600 200 Output Total 550 950 500 Balance -230 -350 -300 Weight 103.1 kg 101.2 kg Intake: Oral 320 600 200 Output: Urine 550 950 500 Other: Voiding Method Toilet Toilet Urinal Urinal # Voids 1 - Exam Head exam was generally normal. There was no scleral icterus or corneal arcus. Mucous membranes were moist.Neck was supple and without jugular venous distension, thyromegaly, or carotid bruits. Carotids were easily palpable bilaterally. There was no adenopathy. Lung sounds are diminished bilaterally along with some few crackles at lung bases. Heart sounds are regular, positive S1-S2 and there is no significant murmurs appreciated. The AICD can be felt over the anterior chest.Abdominal exam revealed normal bowel sounds. The abdomen was soft, non-tender, and without masses, organomegaly, or appreciable enlargement of the abdominal aorta.Examination of the extremities revealed easily palpable radial, femoral and pedal pulses. There was no cyanosis, clubbing and there is improvement in the lower extremities edema compared to yesterday and there is still some plus 1 residual edema - Labs CBC & Chem 7: 10/17/16 06:11 10/17/16 06:11 Labs: Abnormal Lab Results - Last 24 Hours (Table) 10/16/16 10/16/16 10/17/16 Range/Units 17:36 21:13 06:05 RBC (4.30-5.90) m/uL Hgb (13.0-17.5) gm/dL Hct (39.0-53.0) % MCH (25.0-35.0) pg MCHC (31.0-37.0) g/dL RDW (11.5-15.5) % Plt Count (150-450) k/uL Lymphocytes # (1.0-4.8) k/uL Sodium (137-145) mmol/L Carbon Dioxide (22-30) mmol/L BUN (9-20) mg/dL Creatinine (0.66-1.25) mg/dL Glucose (74-99) mg/dL POC Glucose (mg/dL) 136 H 199 H 137 H (75-99) mg/dL Calcium (8.4-10.2) mg/dL Total Bilirubin (0.2-1.3) mg/dL Total Protein (6.3-8.2) g/dL Albumin (3.5-5.0) g/dL 10/17/16 10/17/16 10/17/16 Range/Units 06:11 06:11 11:46 RBC 4.20 L (4.30-5.90) m/uL Hgb 10.3 L (13.0-17.5) gm/dL Hct 36.4 L (39.0-53.0) % MCH 24.5 L (25.0-35.0) pg MCHC 28.3 L (31.0-37.0) g/dL RDW 19.8 H (11.5-15.5) % Plt Count 126 L (150-450) k/uL Lymphocytes # 0.7 L (1.0-4.8) k/uL Sodium 133 L (137-145) mmol/L Carbon Dioxide 21 L (22-30) mmol/L BUN 51 H (9-20) mg/dL Creatinine 1.26 H (0.66-1.25) mg/dL Glucose 100 H (74-99) mg/dL POC Glucose (mg/dL) 179 H (75-99) mg/dL Calcium 8.1 L (8.4-10.2) mg/dL Total Bilirubin 1.6 H (0.2-1.3) mg/dL Total Protein 5.6 L (6.3-8.2) g/dL Albumin 2.8 L (3.5-5.0) g/dL Assessment and Plan Plan: Assessment 1 acute CHF exacerbation. The patient has underlying cardiac myopathy with an ejection fraction of 20-25% and the patient was treated with IV diuretics with subsequent improvement clinically and radiographically. There is some residual small left-sided pleural effusion with adjacent atelectasis and there is marked improvement in the lower extremity edema at the patient is being diuresis. On 10/17/2016, the patient's volume status improved and lower oximetry edema is also improved and the patient will be switched to oral Lasix. 2 shortness of breath improving 3 acute kidney injury, essentially a prerenal azotemia secondary to diuresis, stable 4 hyponatremia, improved 5 suspected pneumonia and the patient is currently on Levaquin as an empiric antibiotic coverage 6 hyperlipidemia 7 coronary artery disease with previous bypass surgery 8 COPD 9 hypertension 10 nicotine addiction/smoking 11 diabetes mellitus type 2 13 iron deficiency anemia 14 nonspecific mediastinal lymphadenopathy that was no immediate attention or intervention at this point. Plan Switch this patient to oral Lasix. Monitor electrolytes. Possible discharge in the next 24-48 hours.
[2016-10-19] MEDS ORDERED: EPINEPHrine 10 ML SYRINGE (0.1 MG/ML) ONE (11:37)
== END 2016-10-17 17:57 | disposition home or self-care (01) | DRG 291 ==
LOC: EC 14:23 → 6SEL 19:04
PROVIDERS: ADMIT Internal Medicine; ATTEND Internal Medicine
DX: I13.0 Hypertensive heart and chronic kidney disease with heart failure and stage 1 through stage 4 chronic kidney disease, or unspecified chronic kidney disease (principal); I50.23 Acute on chronic systolic (congestive) heart failure; J18.9 Pneumonia, unspecified organism; N17.9 Acute kidney failure, unspecified; E11.22 Type 2 diabetes mellitus with diabetic chronic kidney disease; R18.8 Other ascites; E86.0 Dehydration; J44.0 Chronic obstructive pulmonary disease with (acute) lower respiratory infection; E11.65 Type 2 diabetes mellitus with hyperglycemia; J45.901 Unspecified asthma with (acute) exacerbation; E87.1 Hypo-osmolality and hyponatremia; J98.11 Atelectasis; K76.1 Chronic passive congestion of liver; D50.9 Iron deficiency anemia, unspecified; F17.210 Nicotine dependence, cigarettes, uncomplicated; E87.5 Hyperkalemia; N18.9 Chronic kidney disease, unspecified; E78.5 Hyperlipidemia, unspecified; F32.9 Major depressive disorder, single episode, unspecified; F41.1 Generalized anxiety disorder; I25.10 Atherosclerotic heart disease of native coronary artery without angina pectoris; I25.2 Old myocardial infarction; I25.5 Ischemic cardiomyopathy; I34.0 Nonrheumatic mitral (valve) insufficiency; I65.21 Occlusion and stenosis of right carotid artery; R09.02 Hypoxemia; T50.2X5A Adverse effect of carbonic-anhydrase inhibitors, benzothiadiazides and other diuretics, initial encounter; Z79.4 Long term (current) use of insulin; Z79.82 Long term (current) use of aspirin; Z82.49 Family history of ischemic heart disease and other diseases of the circulatory system; Z95.1 Presence of aortocoronary bypass graft; Z95.810 Presence of automatic (implantable) cardiac defibrillator; Z99.81 Dependence on supplemental oxygen; Z79.899 Other long term (current) drug therapy; R59.0 Localized enlarged lymph nodes
CPT/HCPCS: 36415; 71020; 71275; 76700; 80048; 80053; 80074; 81003; 82550; 82553; 82728; 83036; 83540; 83550; 83735; 83880; 84100; 84484; 85025; 85379; 85610; 85730; 87040; 87086; 93005; 93306; 93880; 93970; 94640; 94760; 96361; 96365; 96375; 99291

== ENCOUNTER 2016-10-19 23:28 | Emergency (ER) | payer MEDICARE, OTHER ==
[~2016-10-19 23:28] MED LIST: EPINEPHrine 10 ML SYRINGE (0.1 MG/ML) ONE
--- NOTE | 2016-10-19 23:49 | ED ---
General Adult HPI - General Stated complaint: full arrest Time Seen by Provider: 10/19/16 23:45 Source: RN notes reviewed - History of Present Illness Initial comments: This is a 7-year-old male with a past medical history significant for bypass surgery and congestive heart failure. Patient was recently in the hospital. According to the patient had difficulty breathing asked for an ambulance and then told her he was having significant chest pain and then went down and was only having agonal breathing when EMS arrived EMS stated they arrived at 2253 he was in asystole when they got there. They placed an eye on the patient' s left tibia intubated the patient and patient remained in asystole until about 2310 in the got is pulses back for a short period of time and then lost them again and for the rest of their trip patient remained asystole. On arrival patient was in asystole we were bagging the patient. Good breath sounds bilaterally but we never had any pulses. - Related Data Home Medications Medication Instructions Recorded Confirmed Albuterol Sulfate [Ventolin HFA] 2 puff INHALATION RT-QID PRN 01/23/16 10/09/16 Loratadine 10 mg PO DAILY 01/23/16 10/09/16 PARoxetine HCL 40 mg PO DAILY 01/23/16 10/09/16 Albuterol Nebulized [Ventolin 2.5 mg INHALATION RT-TID PRN 10/09/16 10/09/16 Nebulized] Allopurinol [Zyloprim] 300 mg PO DAILY 10/09/16 10/09/16 Clopidogrel [Plavix] 75 mg PO DAILY 10/09/16 10/09/16 Ergocalciferol (Vitamin D2) 50,000 unit PO Q7D 10/09/16 10/09/16 [Vitamin D2] Fluticasone/Vilanterol [Breo 1 puff INHALATION RT-DAILY 10/09/16 10/09/16 Ellipta 200-25 Mcg INH] Montelukast [Singulair] 10 mg PO HS 10/09/16 10/09/16 OXcarbazepine [Trileptal] 150 mg PO HS 10/09/16 10/09/16 Omeprazole [PriLOSEC] 20 mg PO DAILY 10/09/16 10/09/16 Simvastatin [Zocor] 40 mg PO HS 10/09/16 10/09/16 traMADol HCL [Ultram] 50 mg PO BID 10/09/16 10/09/16 traZODone HCL 50 mg PO HS 10/09/16 10/09/16 Previous Rx's Medication Instructions Recorded ALPRAZolam [Xanax] 0.25 mg PO BID PRN #10 tab 10/17/16 Aspirin 81 mg PO DAILY #30 chew 10/17/16 Carvedilol [Coreg] 3.125 mg PO BID-W/MEALS #60 tab 10/17/16 Ferrous Sulfate [Iron (65 MG 325 mg PO BID #60 tab 10/17/16 Elemental)] Furosemide [Lasix] 40 mg PO BID@0900,1600 #60 tab 10/17/16 Levofloxacin [Levaquin] 250 mg PO Q24H #1 tab 10/17/16 Lisinopril [Zestril] 2.5 mg PO DAILY #30 tab 10/17/16 Nicotine 21Mg/24Hr Patch [Habitrol] 1 patch TRANSDERM DAILY #30 patch 10/17/16 Potassium Chloride ER [K-Dur 20] 20 meq PO DAILY #30 tab 10/17/16 glipiZIDE [Glucotrol] 5 mg PO DAILY #30 tab 10/17/16 Allergies Allergy/AdvReac Type Severity Reaction Status Date / Time No Known Allergies Allergy Verified 10/09/16 14:38 Review of Systems ROS Statement: Those systems with pertinent positive or pertinent negative responses have been documented in the HPI. ROS Other: All systems not noted in ROS Statement are negative. Past Medical History Past Medical History: Coronary Artery Disease (CAD), Heart Failure, Hyperlipidemia, Hypertension, Myocardial Infarction (NC), Osteoarthritis (OA) Additional Past Medical History / Comment(s): cardiac defib, patient did have episode of acute kidney injury in the past he did not require dialysis. Last Myocardial Infarction Date:: 2008 History of Any Multi-Drug Resistant Organisms: None Reported Past Surgical History: Back Surgery, Coronary Bypass/CABG, Orthopedic Surgery Additional Past Surgical History / Comment(s): CABG 2008, FINGER REPAIR REATTACHEMENT Past Anesthesia/Blood Transfusion Reactions: No Reported Reaction Past Psychological History: Anxiety, Depression Smoking Status: Current every day smoker Past Alcohol Use History: None Reported Past Drug Use History: None Reported - Past Family History Father Family Medical History: No Reported History Mother Family Medical History: Coronary Artery Disease (CAD), Diabetes Mellitus General Exam - General Exam Comments Initial Comments: GENERAL: Patient is well-developed and well-nourished. Patient was unresponsive PULMONARY: Patient had no spontaneous breath sounds he did have bilateral breath sounds with bagging CARDIOVASCULAR: Patient had no heart sounds and no pulses were palpable ABDOMEN: Patient had a morbidly obese abdomen SKIN: Patient has some cyanosis to the hands NEUROLOGIC: Patient a GCS of 3 Medical Decision Making - Medical Decision Making Patient remained pulseless and asystolic protocol was followed patient received 3 epinephrine in the emergency department. We have determined that the patient initially went down at approximately 2250 and besides a short period of time when his pulses returned he was down for a total of 47 minutes at 2337 he was pronounced Disposition Clinical Impression: Cardiopulmonary arrest Disposition: Time of Disposition: 23:49 Preliminary Cause of : Cardiopulmonary arrest
[2016-10-21 08:25] LABS: Glucose,Whole Blood 139 mg/dL (75-99)
== END 2016-10-20 02:45 | disposition expired ==
LOC: EC 23:28
DX: I46.9 Cardiac arrest, cause unspecified (principal); I11.0 Hypertensive heart disease with heart failure; I50.9 Heart failure, unspecified; E78.5 Hyperlipidemia, unspecified; I25.2 Old myocardial infarction; M19.90 Unspecified osteoarthritis, unspecified site; F41.9 Anxiety disorder, unspecified; F32.9 Major depressive disorder, single episode, unspecified; E66.01 Morbid (severe) obesity due to excess calories; Z79.51 Long term (current) use of inhaled steroids; Z79.899 Other long term (current) drug therapy; Z79.02 Long term (current) use of antithrombotics/antiplatelets; Z79.891 Long term (current) use of opiate analgesic; Z95.1 Presence of aortocoronary bypass graft; F17.200 Nicotine dependence, unspecified, uncomplicated
CPT/HCPCS: 36415; 92950; 99285